=== PATIENT | female | born 1985 | race Caucasian/White ===

== ENCOUNTER 2017-10-09 00:26 | Emergency (ER) | payer SELFPAY ==
[2017-10-09] MEDS ORDERED: LORazepam 2 MG/ML VIAL ONE ×3 (00:43→10:01)
[2017-10-09] MEDS ORDERED: NA CHLORIDE 0.9% 1,000 ML ONE ×2 (00:43→17:25)
[2017-10-09 01:34] LABS: Absolute Lymphocytes (CBC) 1.8 K/uL (0.7-4.9); Absolute Monocytes 0.3 K/uL (0.1-1.3); Absolute Neutrophil 5.2 K/uL (1.8-8.0); Basophils % 0.7 % (0-1.3); Eosinophils % 0.3 % (0-4.4); Hematocrit 38.9 % (36.0-45.0); Lymphocytes % 24.5 % (15.3-44.8); MCH 30.2 pg (27.0-35.0); MCV 89.6 fL (80-100); MPV 8.2 fL (7.6-11.3); Monocytes % 3.6 % (3.3-12.3); RBC Red Blood Cell Count 4.35 M/uL (3.86-4.86)
[2017-10-09 01:35] LABS: Protime INR 0.93
[2017-10-09 01:37] LABS: Glucose Level 128 mg/dL (65-120)
[2017-10-09 01:40] LABS: Bicarbonate 25 mEq/L (21-31); Sodium Level 141 mEq/L (135-145)
[2017-10-09 01:41] LABS: Potassium 2.9 mEq/L (3.6-5.0)
[2017-10-09 01:42] LABS: Urine Blood 2+ (NEG); Urine Glucose NEGATIVE (NEG); Urine Protein NEGATIVE (NEG); Urine Specific Gravity 1.025 (1.005-1.030)
[2017-10-09 01:43] LABS: ALT/SGPT 15 IU/L (10-60); AST/SGOT 19 IU/L (10-42); Albumin 4.6 g/dL (3.2-5.5); Alkaline Phosphatase 48 IU/L (42-121); BUN Blood Urea Nitrogen 9 mg/dL (6-20); Bilirubin Direct < 0.1 mg/dL (0-0.2); Bilirubin Total 0.4 mg/dL (0.3-1.2); Protein, Total 8.4 g/dL (6.0-8.3)
[2017-10-09 01:44] LABS: Barbiturates NEGATIVE; Benzodiazepines POSITIVE; Cocaine NEGATIVE; Opiates NEGATIVE; Phencyclidine NEGATIVE; THC Cannibis POSITIVE
[2017-10-09 01:46] LABS: METHAMPHETAM POSITIVE
[2017-10-09 01:47] LABS: Alcohol Serum/Plasma 150 mg/dl; Salicylates Level < 4.0 mg/dl (<30)
[2017-10-09] MEDS ORDERED: IBUPROFEN 200 MG TAB PO ONE (01:59)
[2017-10-09] MEDS ORDERED: IBUPROFEN 400 MG TAB ONE (01:59)
[2017-10-09] MEDS ORDERED: POTASSIUM CL SA 10 MEQ TAB PO ONE (02:23)
[2017-10-09] MEDS ORDERED: D5.45NS W/KCL 20MEQ 0 ML IV ONE (03:03)
[2017-10-09] MEDS ORDERED: NS KCL 20MEQ 1,000 ML IV ONE (03:09)
[2017-10-09] MEDS ORDERED: POTASSIUM 25 MEQ EFFERV TAB ONE (03:36)
--- NOTE | 2017-10-09 06:38 | EKG ---
Test Date: 2017-10-09 Test Time: 00:52:45 Dog Races Manager: SUPRIYA MEASUREMENT RESULTS: Intervals: Rate: 71 AR: 118 QRSD: 92 QT: 376 QTc: 408 [place]: P: AR: 118 QRS: 17 T: 17 INTERPRETIVE STATEMENTS: Normal sinus rhythm Normal ECG Compared to ECG 09/26/2011 07:27:07 No significant changes Electronically Signed On 10-09-17 06:38:25 CDT by Felipe Weber
[2017-10-09] MEDS ORDERED: KETOROLAC 30 MG/ML INJ ONE (08:03)
--- NOTE | 2017-10-09 08:23 | ER ---
Nurse's Notes [facility] Name: Christine Dong Age: 32 yrs Sex: Female : 1985 Arrival Date: 10/09/2017 Time: 00:27 Bed 16 Private MD: Diagnosis: Suicidal ideations;Major depressive disorder, recurrent;Bipolar disorder Presentation: 10/09 00:52 Presenting complaint: EMS states: Patient took "something with a parachute on it that lp1 may have been meth", + ETOH, states feeling suicidal; "I'm a bad person, I shouldn't live"; Hx of bipolar disorder, SI. Transition of care: patient was not received from another setting of care. Onset of symptoms was October 09, 2017. Initial Sepsis Screen: Does the patient meet any 2 criteria? No. Patient's initial sepsis screen is negative. Does the patient have a suspected source of infection? No. Patient's initial sepsis screen is negative. Care prior to arrival: None. 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 - Social history:: Smoking status: Patient uses tobacco products, denies chronic smoking, but will smoke occasionally, Patient uses alcohol, Marijuana. Screenin:57 Abuse screen: Denies threats or abuse. Denies injuries from another. Nutritional lp1 screening: No deficits noted. Tuberculosis screening: No symptoms or risk factors identified. Fall Risk None identified. Assessment: 01:00 General: Appears uncomfortable, Behavior is cooperative, anxious, crying. Pain: bs1 Complains of pain in generalized pain, legs, jaw. Neuro: Level of Consciousness is awake, alert, Oriented to person, place, situation, Reports dizziness. Neuro: Reports. Cardiovascular: Denies chest pain, palpitations, Heart tones S1 S2 present. Cardiovascular: Capillary refill < 3 seconds Patient's skin is warm and dry. Respiratory: Airway is patent Trachea midline Respiratory effort is even, unlabored, Respiratory pattern is regular, symmetrical, Breath sounds are clear bilaterally. GI: Abdomen is flat, Bowel sounds present X 4 quads. Abd is non tender X 4 quads Reports nausea. : No deficits noted. No signs and/or symptoms were reported regarding the genitourinary system. EENT: No deficits noted. No signs and/or symptoms were reported regarding the EENT system. Derm: Skin is intact, Skin is pink, warm \\T\\ dry. Musculoskeletal: Circulation, motion, and sensation intact. Capillary refill < 3 seconds, Range of motion: intact in all extremities, Reports pain in bilateral legs/ jaw. 01:35 Reassessment: Patient on the phone with her noted to be crying and very bs1 anxious, patient states "I never did meth in my life, I ingested the meth because I just didn't care anymore, I wanted to end it all because I am a piece of shit, I called because I wanted the help, this claudy gave it to me and told me to take it that I would like it so I took it.". 02:00 Reassessment: Informed MARIO Arguello that patient is requesting to be transferred to [address] Patients states "I have been having these suicidal thoughts for a while, I need the help.". 03:30 Reassessment: Patient walking back and forth in the room, anxious, crying, pacing, bs1 continuously requesting, toradol, benadryl. Informed Dr Johnson of patients request. No more orders at this time. 04:00 Reassessment: Patient given prune juice. Patient seen to be on the commode in the room bs1 straining and groaning. 05:45 Reassessment: No changes from previously documented assessment. Patient and/or family bs1 updated on plan of care and expected duration. Pain level reassessed. Patient is alert, oriented x 3, equal unlabored respirations, skin warm/dry/pink. Patient still anxious, states "Is there ghosts in here, I swear I just saw something.". 06:29 Reassessment: Patient states "I feel like the drugs are wearing off some." Patient is bs1 still noted to be pacing around room, anxious, crying, moaning, requesting pain meds. 07:10 General: Appears in no apparent distress. uncomfortable, Behavior is cooperative, hj anxious, crying. Pain: Denies pain. Neuro: Level of Consciousness is awake, alert, obeys commands, Oriented to person, place, time, situation. Cardiovascular: Denies chest pain, palpitations, Heart tones S1 S2 present Capillary refill < 3 seconds Patient's skin is warm and dry. Respiratory: Airway is patent Respiratory effort is even, unlabored, Respiratory pattern is regular, symmetrical, Breath sounds are clear. GI: No signs and/or symptoms were reported involving the gastrointestinal system. GI: Abdomen is non-distended, Bowel sounds present X 4 quads. Abd is non tender Reports nausea. : No signs and/or symptoms were reported regarding the genitourinary system. EENT: No signs and/or symptoms were reported regarding the EENT system. Derm: No signs and/or symptoms reported regarding the dermatologic system. Musculoskeletal: No signs and/or symptoms reported regarding the musculoskeletal system. 08:01 Reassessment: Patient c/o back pain, requesting 'toradol" provider notified, new orders ae1 received. 09:00 Reassessment: [facility] with pt;. hj 10:00 Reassessment: pt uses our phone to speak with her . pt the becomes very tearful ch and agitated. pt states she needs to leave. pt is hyperventilating and crying in room, rocking back and forth, pacing in the room. I speak with pt to attempt to calm her down. pt states she wants to go home and be with her kids. I inform pt that she is still considered a danger to herself and that we would like her to stay and get help. pt states she needs to go smoke. pt is speaking very fast, hyperventilating, wringing her hands. pt asks for something to help her calm down. erp notified, pt medicated per orders for anxiety. pt states she has been feeling suicidal for the past month or even year. pt agrees to stay and get treatment for her depression. pt states she is not a bad person, but that she hit rock bottom yesterday. 11:37 Reassessment: Patient appears in no apparent distress at this time. Patient and/or ch family updated on plan of care and expected duration. Pain level reassessed. pt is sleeping in room now. we call the phone number she gave us, and her answers. pt will be notified, that her has her phone when she awakens again. 14:56 Reassessment: Patient appears in no apparent distress at this time. Patient and/or ch family updated on plan of care and expected duration. Pain level reassessed. pt is sleeping in room, no s/s of distress. pt moves around and responds appropriately to verbal stimuli, then returns to sleep. 17:00 Reassessment: Patient appears in no apparent distress at this time. Patient and/or ch family updated on plan of care and expected duration. Pain level reassessed. Patient is alert, oriented x 3, equal unlabored respirations, skin warm/dry/pink. Patient states feeling better. Patient states symptoms have improved. 18:00 Reassessment: Patient appears in no apparent distress at this time. Patient and/or ch family updated on plan of care and expected duration. Pain level reassessed. Patient is alert, oriented x 3, equal unlabored respirations, skin warm/dry/pink. Patient states feeling better. Patient states symptoms have improved. 19:26 Reassessment: Patient appears in no apparent distress at this time. report given to bob ordonez and Geraldine ROGERS. 19:54 Reassessment: Pt. states that she is feeling anxious \\T\\ this time... provider notified. rk2 Verbal order from Malik MARTIN for xanax 1 mg PO. 20:51 Reassessment: Called report to receiving AUBREE Hollingsworth... EMS to be called and pt. rk2 transferred. 21:20 Reassessment: [facility] arrived, report and pt. care turned over... pt. rk2 transported out on stretcher. Psych: 00:55 Subjective: Patient's mood is sad, Delusions are denied, Hallucinations are denied lp1 Having thoughts of suicide. Plan for suicide is States "there is a gun in the top drawer that I could use". Objective: Patient is cooperative, Speech is normal, Affect is appropriate. Interventions: Removed personal items and placed in bag. Patient placed in hospital gown. Searched person for dangerous items. Urine collected and sent for urine drug test. Suicide Risk Assessment: Sad Person Scale: Sex of patient: Female: Score 0 points. Age of patient: Score 1 point if patient 15-34. Depression: Score 1 point if signs of depression are present. Previous Attempt: Score 1 point if patient has previously attempted suicide. Substance Abuse: Score 1 point if patient abuses alcohol or drugs. Rational Thinking: Score 1 point if patient is lacking rational thinking. Social Support: Score 1 point if social support is lacking and/or unavailable. Organized Plan: Score 1 point if patient had a plan in place. Relationship: Score 0 point if patient has a spouse or domestic partner. Chronic Sickness: Score 0 point if patient does not have a chronic illness, debilitating, or severe disorder. TOTAL POINTS: If total points are 7-10, the proposed clinical action is to hospitalize or commit. Implement suicide precautions. 01:00 Safety Checks: Door is open. No visitors are present at this time. bs1 01:00 Patient uses 1-3 glasses Patient uses methamphetamines Unknown, patient reports taking bs1 meth from unknown person. Patient uses tobacco Last use was 1 days ago. 21:21 Commitment: Patient will be a voluntary commitment. rk2 Vital Signs: 01:00 Pulse 83; Resp 18; Temp 98.7(O); Pulse Ox 100% on R/A; Weight 54.43 kg; Height 5 ft. 5 lp1 in. (165.10 cm); 01:05 BP 136 / 97; Pulse 77; bs1 05:08 BP 122 / 70 LA Sitting (auto/reg); Pulse 63 RA; Resp 30 S; Temp 98.5(O); Pulse Ox 99% cb2 on R/A; 09:11 BP 118 / 68; Pulse 74; Resp 16; Temp 98.3; Pulse Ox 100% on R/A; Pain 5/10; iw 10:00 BP 146 / 68; Pulse 96; Resp 24; Pulse Ox 99% on R/A; ch 10:32 BP 114 / 72; Pulse 71; Resp 14; Temp 98.2; Pulse Ox 99% on R/A; Pain 0/10; ch 14:00 BP 123 / 76; Pulse 72; Resp 22; Pulse Ox 100% on R/A; mh5 17:12 BP 111 / 74; Pulse 96; Resp 16; Temp 98.2(O); Pulse Ox 98% on R/A; mh5 18:30 BP 116 / 68; Pulse 96; Resp 17; Temp 97.8(O); Pulse Ox 99% on R/A; mh5 01:00 Body Mass Index 19.97 (54.43 kg, 165.10 cm) lp1 ED Course: 00:27 Patient arrived in ED. am2 00:28 Malik Arguello PA is PHCP. jr8 00:28 Trevon Johnson MD is Attending Physician. jr8 00:40 Kathie Burdick, RN is Primary Nurse. bs1 00:54 Triage completed. lp1 00:54 Arm band placed on left wrist. lp1 00:55 Urine collected: clean catch specimen, clear. lp1 00:57 Patient has correct armband on for positive identification. Placed in gown. lp1 01:05 No provider procedures requiring assistance completed. Inserted saline lock: 20 gauge bs1 in right antecubital area, using aseptic technique. By Ernesto Roca Missed attempt(s): 22 gauge in left antecubital area. By Nurse Vázquez.. 01:38 Safety checks: Items removed: yes. Door open/sign placed on door: yes. Family/friend cb2 present: Other: pt on the phone with the , Kathie RN at pt bedside. 02:03 Safety checks: Items removed: yes. Door open/sign placed on door: yes. Family/friend cb2 present: no. 02:16 Safety checks: Items removed: yes. Door open/sign placed on door: yes. Family/friend cb2 present: no. 02:32 Safety checks: Items removed: yes. Door open/sign placed on door: yes. Family/friend cb2 present: no. 02:44 Safety checks: Items removed: yes. Door open/sign placed on door: yes. Family/friend cb2 present: no. 03:00 Safety checks: Items removed: yes. Door open/sign placed on door: yes. Family/friend cb2 present: no. 03:33 Safety checks: Items removed: yes. Door open/sign placed on door: yes. Family/friend cb2 present: no. 03:45 Safety checks: Items removed:. Safety checks: Items removed: yes. Door open/sign placed cb2 on door: yes. Family/friend present: no. 04:00 Safety checks: Items removed: yes. Door open/sign placed on door: yes. Family/friend cb2 present: no. 04:15 Safety checks: Items removed: yes. Door open/sign placed on door: yes. Family/friend cb2 present: no. 04:30 Safety checks: Items removed: yes. Door open/sign placed on door: yes. Family/friend cb2 present: no. 04:48 Safety checks: Items removed: yes. Door open/sign placed on door: yes. Family/friend cb2 present: no. 05:01 Safety checks: Items removed: yes. Door open/sign placed on door: yes. Family/friend cb2 present: no. 05:15 Safety checks: Items removed: yes. Door open/sign placed on door: yes. Family/friend cb2 present: no. 05:34 Safety checks: Items removed: yes. Door open/sign placed on door: yes. Family/friend cb2 present: no. Noise minimized. Lights dimmed. Assisted to bedside commode. Linen changed. 05:49 Safety checks: Items removed: yes. Door open/sign placed on door: yes. Family/friend cb2 present: no. 06:00 Safety checks: Items removed: yes. Door open/sign placed on door: yes. Family/friend cb2 present: no. 06:13 Safety checks: Items removed: yes. Door open/sign placed on door: yes. Family/friend cb2 present: no. 06:13 Repeat lab(s) drawn. by me, sent to lab. cb2 06:30 Safety checks: Items removed: yes. Door open/sign placed on door: yes. Family/friend cb2 present: no. 06:47 Safety checks: Items removed: yes. Door open/sign placed on door: yes. Family/friend cb2 present: no. 07:00 Safety checks: Items removed: yes. Door open/sign placed on door: yes. Family/friend mh5 present: no. 07:15 Safety checks: Items removed: yes. Door open/sign placed on door: yes. Family/friend mh5 present: no. 07:22 [facility] notified about the patient spoke with ag 07:30 Safety checks: Items removed: yes. Door open/sign placed on door: yes. Family/friend mh5 present: no. 07:45 Safety checks: Items removed: yes. Door open/sign placed on door: yes. Family/friend mh5 present: no. 08:00 Safety checks: Items removed: yes. Door open/sign placed on door: yes. Family/friend mh5 present: no. 08:15 Safety checks: Items removed: yes. Door open/sign placed on door: yes. Family/friend mh5 present: no. 08:45 Safety checks: Items removed: yes. Door open/sign placed on door: yes. Family/friend mh5 present: no. 09:00 Safety checks: Items removed: yes. Door open/sign placed on door: yes. Family/friend mh5 present: no. 09:15 Safety checks: Items removed: yes. Door open/sign placed on door: yes. Family/friend mh5 present: no. 09:17 Primary Nurse role handed off by Kathie Burdick RN 09:17 Stacey Patterson RN is Primary Nurse. 09:30 Safety checks: Items removed: yes. Door open/sign placed on door: yes. Family/friend mh5 present: no. 09:45 Safety checks: Items removed: yes. Door open/sign placed on door: yes. Family/friend mh5 present: no. 10:00 Safety checks: Items removed: yes. Door open/sign placed on door: yes. Family/friend mh5 present: no. 10:09 Demographics and the patients information was sent to all [facility] facilities. ag 10:13 An from [facility] called to inform us they have no beds available at this time. ag 10:15 Safety checks: Items removed: yes. Door open/sign placed on door: yes. Family/friend mh5 present: no. 10:30 Safety checks: Items removed: yes. Door open/sign placed on door: yes. Family/friend mh5 present: no. 10:45 Safety checks: Items removed: yes. Door open/sign placed on door: yes. Family/friend mh5 present: no. 11:00 Safety checks: Items removed: yes. Door open/sign placed on door: yes. Family/friend mh5 present: no. 11:30 Safety checks: Items removed: yes. Door open/sign placed on door: yes. Family/friend mh5 present: no. 11:34 Jerrica from [facility] call to inform us they have no beds but will keep her ag on the list. 11:45 Safety checks: Items removed: yes. Door open/sign placed on door: yes. Family/friend mh5 present: no. 12:00 Safety checks: Items removed: yes. Door open/sign placed on door: yes. Family/friend mh5 present: no. 12:15 Safety checks: Items removed: yes. Door open/sign placed on door: yes. Family/friend mh5 present: no. 12:45 Safety checks: Items removed: yes. Door open/sign placed on door: yes. Family/friend mh5 present: no. 13:00 Safety checks: Items removed: yes. Door open/sign placed on door: yes. Family/friend mh5 present: no. 13:15 Safety checks: Items removed: yes. Door open/sign placed on door: yes. Family/friend mh5 present: no. 13:30 Safety checks: Items removed: yes. Door open/sign placed on door: yes. Family/friend mh5 present: no. 13:45 Safety checks: Items removed: yes. Door open/sign placed on door: yes. Family/friend mh5 present: no. 14:00 Safety checks: Items removed: yes. Door open/sign placed on door: yes. Family/friend mh5 present: no. 14:15 Safety checks: Items removed: yes. Door open/sign placed on door: yes. Family/friend mh5 present: no. 14:30 Safety checks: Items removed: yes. Door open/sign placed on door: yes. Family/friend mh5 present: no. 14:45 Safety checks: Items removed: yes. Door open/sign placed on door: no. Family/friend mh5 present: no. 15:00 Safety checks: Items removed: yes. Door open/sign placed on door: yes. Family/friend mh5 present: no. 15:15 Safety checks: Items removed: yes. Door open/sign placed on door: yes. Family/friend mh5 present: no. 15:30 Safety checks: Items removed: yes. Door open/sign placed on door: yes. Family/friend mh5 present: no. 15:45 Safety checks: Items removed: yes. Door open/sign placed on door: yes. Family/friend mh5 present: no. 16:00 Safety checks: Items removed: yes. Door open/sign placed on door: yes. Family/friend mh5 present: no. 16:15 Safety checks: Items removed: yes. Door open/sign placed on door: yes. Family/friend mh5 present: no. 16:30 Safety checks: Items removed: yes. Door open/sign placed on door: yes. Family/friend mh5 present: no. 16:45 Safety checks: Items removed: yes. Door open/sign placed on door: yes. Family/friend mh5 present: no. 17:00 Safety checks: Items removed: yes. Door open/sign placed on door: yes. Family/friend mh5 present: no. 17:15 Safety checks: Items removed: yes. Door open/sign placed on door: yes. Family/friend mh5 present: no. 17:30 Safety checks: Items removed: yes. Door open/sign placed on door: yes. Family/friend mh5 present: no. 17:45 Safety checks: Items removed: yes. Door open/sign placed on door: yes. Family/friend mh5 present: no. 17:57 Exclusionary forms sent to [facility]. ag 18:00 Safety checks: Items removed: yes. Door open/sign placed on door: yes. Family/friend mh5 present: no. 18:15 Safety checks: Items removed: yes. Door open/sign placed on door: yes. Family/friend mh5 present: no. 18:30 Safety checks: Items removed: yes. Door open/sign placed on door: yes. Family/friend mh5 present: no. 18:45 Safety checks: Items removed: yes. Door open/sign placed on door: yes. Family/friend mh5 present: no. 19:00 Safety checks: Items removed: yes. Door open/sign placed on door: yes. Family/friend aa8 present: no. 19:15 Safety checks: Items removed: yes. Door open/sign placed on door: yes. Family/friend aa8 present: no. 19:30 Safety checks: Items removed: yes. Door open/sign placed on door: yes. Family/friend aa8 present: yes. Family/friends encouraged to stay with patient. 20:00 Safety checks: Items removed: yes. Door open/sign placed on door: yes. Family/friend aa8 present: no. 20:15 Safety checks: Items removed: yes. Door open/sign placed on door: yes. Family/friend aa8 present: no. 20:30 Safety checks: Items removed: yes. Door open/sign placed on door: yes. Family/friend aa8 present: yes. 20:35 Safety checks: Items removed: yes. Door open/sign placed on door: yes. Family/friend aa8 present: no. 20:36 Safety checks: Items removed: yes. Door open/sign placed on door: yes. Family/friend aa8 present: no. 20:45 Safety checks: Items removed: yes. Door open/sign placed on door: yes. Family/friend aa8 present: no. 21:00 Safety checks: Items removed: yes. Door open/sign placed on door: yes. Family/friend aa8 present: no. 21:15 Safety checks: Items removed: yes. Door open/sign placed on door: yes. Family/friend aa8 present: Other: PT JUST TRANSFER. 21:22 IV discontinued. rk2 Administered Medications: 01:05 Drug: Ativan 1 mg Route: IVP; Site: right antecubital; bs1 04:06 Follow up: Response: No adverse reaction bs1 01:14 Drug: NS 0.9% 1000 ml Route: IV; Rate: 1000 ml; Site: right antecubital; bs1 04:06 Follow up: IV Status: Completed infusion bs1 02:21 Drug: Ibuprofen 600 mg Route: PO; bs1 04:06 Follow up: Response: No adverse reaction bs1 02:23 Drug: Potassium Chloride 40 mEq Route: PO; bs1 04:06 Follow up: Response: No adverse reaction bs1 03:13 Drug: Ativan 2 mg Route: IVP; Site: right antecubital; bs1 04:05 Follow up: Response: No adverse reaction bs1 03:13 Drug: NS 0.9% with KCl 20 mEq/L 1000 ml Route: IV; Rate: 500 ml/hr; Site: right bs1 antecubital; 05:26 Follow up: IV Status: Completed infusion bs1 03:38 CANCELLED (incorrect med): Potassium Chloride 40 mEq PO once bs1 03:40 Drug: Potassium Effervescent Tablet 50 mEq Route: PO; bs1 04:07 Follow up: Response: No adverse reaction bs1 10:24 Follow up: Response: No adverse reaction; Marked relief of symptoms ch 08:02 Drug: TORadol 30 mg Route: IVP; Site: right antecubital; hj 08:04 Follow up: Response: No adverse reaction hj 10:00 Drug: Nicoderm CQ 21 mg/24 hr 1 patches Route: Transdermal; Site: anterior chest wall; ch 15:02 Follow up: Response: No adverse reaction; Marked relief of symptoms ch 10:10 Drug: Geodon 20 mg Route: IM; Site: right gluteus; ch 15:02 Follow up: Response: No adverse reaction; Marked relief of symptoms ch 10:23 Drug: Ativan 2 mg Route: IVP; Site: right antecubital; ch 15:02 Follow up: Response: No adverse reaction; Marked relief of symptoms ch 17:30 Drug: NS 0.9% 1000 ml Route: IV; Rate: 1 bolus; Site: right antecubital; ae1 19:27 Follow up: IV Status: Completed infusion; IV Intake: 1000ml ch 19:53 Drug: XANax Tablet 1 mg Route: PO; rk2 Intake: 19:27 IV: 1000ml; Total: 1000ml. ch Outcome: 08:23 ER care complete, transfer ordered by MD. hanson 21:21 Transferred by ground EMS rk2 21:21 Condition: good 21:21 Instructed on the need for transfer. 21:22 Patient left the ED. rk2 Signatures: Stacey Patterson RN Trevon Cha ch, MD MD cha Williams, Irene RN Trinity Sanchez RN RN lp1 Malik Arguello PA PA jr8 Debora Morse Henry, RN RN hj Elliott, Andrea, RN RN ae1 Mehnaz Bhandari 5 Dolly Beard Ernesto Nguyen Adeola aa8 Salazar, Brittany RN RN bs1 Yamila Hernandez RN RN rk2 Corrections: (The following items were deleted from the chart) 08:43 08:20 Safety checks: Items removed: yes. Door open/sign placed on door: yes. mh5 Family/friend present: [facility] 08:47 08:30 Safety checks: Items removed: yes. Door open/sign placed on door: yes. mh5 Family/friend present: [facility] 20:32 20:29 Safety checks: Items removed: yes. Door open/sign placed on door: yes. aa8 Family/friend present: no. aa8 21:12 20:32 Safety checks: Items removed: yes. Door open/sign placed on door: yes. aa8 Family/friend present: no. aa8 20:35 Safety checks: Items removed: yes. Door open/sign placed on door: yes. aa8 Family/friend present: no. aa8
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
[2017-10-09] MEDS ORDERED: ZIPRASIDONE MESYLA 20 MG/VIAL IM ONE (10:01)
[2017-10-09] MEDS ORDERED: NICOTINE 21 MG/PAT TD ONE (10:02)
[2017-10-09] MEDS ORDERED: WATER FOR INJ,STERILE 10 ML ONE (10:02)
[2017-10-09] MEDS ORDERED: ALPRAZOLAM 1 MG TABLET ONE (19:48)
[2017-10-09 21:45] VITALS: BP 116/68; TEMP 97.8; O2SAT 99
== END 2017-10-09 21:22 ==
LOC: ER 00:26
DX: F33.9 Major depressive disorder, recurrent, unspecified (principal); F31.9 Bipolar disorder, unspecified; I10 Essential (primary) hypertension; Z72.0 Tobacco use; Z88.8 Allergy status to other drugs, medicaments and biological substances
CPT/HCPCS: 36415; 80048; 80076; 80307; 80320; 80329; 81003; 81025; 84132; 85025; 85610; 93005; 96361; 96372; 96374; 96375; 99285; J3486; J7030

== ENCOUNTER 2018-05-28 18:29 | Emergency (ER) | payer SELFPAY ==
--- OUTSIDE RECORDS SUMMARY | 2018-05-28 18:31 | XMS REPORT | Clinical Summary ---
:1985 Author Organization [facility] Address [address] [place] [address] Care Team Providers Name Role Phone Asked, No Pcp Primary Care Provider Unavailable Allergies Active Allergy Reactions Severity Noted Date Comments Promethazine 10/10/2017 Medications Medication Sig Dispensed Refills Start Date End Date Status gabapentin Take 1 capsule 90 capsule 0 10/12/2017 11/11/2017 (NEURONTIN) 400 mg (400 mg total) capsuleIndications: by mouth 3 Alcoholism (three) times a day for 30 days. hydrOXYzine (ATARAX) Take 1 tablet 30 tablet 0 10/12/2017 11/11/2017 50 MG (50 mg total) by tabletIndications: mouth every 6 Anxiety (six) hours as needed for anxiety (mild anxiety) for up to 30 days. traZODone (DESYREL) Take 1 tablet 30 tablet 0 10/12/2017 11/11/2017 100 MG (100 mg total) tabletIndications: by mouth nightly insomnia associated as needed for with depression sleep (Insomnia) for up to 30 days. nicotine (NICODERM Place 1 patch on 30 patch 0 10/13/2017 11/12/2017 CQ) 14 mg/24 the skin daily hrIndications: for 30 days. Smoking Cessation Active Problems Problem Noted Date Sedative hypnotic withdrawal, with unspecified complication 10/10/2017 Encounters Date Type Specialty Care Team Description 10/30/2017 Telephone Psychiatry Boyd Buchanan, PhD 10/09/2017 - Hospital Encounter Psychiatry Maru Baptiste MD 10/14/2017 Seth Uriostegui MD after 05/27/2017 Social History Tobacco Use Types Packs/Day Years Used Date Current Every Day Smoker Cigarettes 0.25 Smokeless Tobacco: Never Used Tobacco Cessation: Ready to Quit: Yes; Counseling Given: Yes Alcohol Use Drinks/Week oz/Week Comments Yes 3 Cans of beer 1.8 Sex Assigned at Date Recorded Not on file Job Start Date Occupation Industry Not on file Not on file Not on file Travel History Travel Start Travel End No recent travel history available. Last Filed Vital Signs Vital Sign Reading Time Taken Blood Pressure 112/61 10/14/2017 6:29 AM CDT Pulse 64 10/14/2017 6:29 AM CDT Temperature 36.6 C (97.9 F) 10/14/2017 6:29 AM CDT Respiratory Rate 18 10/14/2017 6:29 AM CDT Oxygen Saturation 97% 10/14/2017 6:29 AM CDT Inhaled Oxygen Concentration - - Weight 52.3 kg (115 lb 6.4 oz) 10/10/2017 6:06 AM CDT Height 152.4 cm (5') 10/09/2017 11:28 PM CDT Body Mass Index 22.54 10/10/2017 6:06 AM CDT Plan of Treatment Not on file Procedures Procedure Name Priority Date/Time Associated Diagnosis Comments ECG 12-LEAD STAT 10/10/2017 9:54 AM Results for this CDT procedure are in the results section. HEMOGLOBIN A1C Routine 10/10/2017 5:52 AM Results for this CDT procedure are in the results section. LIPID PANEL Routine 10/10/2017 1:22 AM Results for this CDT procedure are in the results section. after 05/27/2017 Results ECG 12 lead (10/10/2017 9:54 AM CDT) Ventricular rate 63 [facility] Atrial rate 63 [facility] AZ interval 130 [facility] QRSD interval 92 [facility] QT interval 412 [facility] QTC interval 421 [facility] P axis 1 0 [facility] QRS axis 1 30 [facility] T wave axis 30 [facility] EKG impression Normal sinus rhythm-Normal ECG-No previous [facility] ECGs available- Performing Organization Address City/State/Zipcode Phone Number [facility] [address] [place] [address] Hemoglobin A1c (10/10/2017 5:52 AM CDT) Hemoglobin A1C 5.1 4.0 - 5.6 % [facility] DEPARTMENT OF PATHOLOGY Comment: AND GENOMIC MEDICINE HbA1c cutoffs for diagnosing diabetes: 4.0% - 5.6%=normal 5.7% - 6.4%=increased risk for diabetes (prediabetes) >=6.5%=diabetes Goals for glycemic control (ADA 2016) < 7.0%Target for non adults with diabetes. More or less stringent targets may be appropriate for individual patients. <7.5% Target for Children and adolescents with type 1 diabetes. Specimen Blood Performing Organization Address [facility] Phone Number [facility] AND [address] [place] [address] [employer]uso [facility] Lipid panel (10/10/2017 1:22 AM CDT) Cholesterol 121 <200 mg/dL [facility] DEPARTMENT OF PATHOLOGY AND GENOMIC MEDICINE Triglycerides 59 <150 mg/dL [facility] OF PATHOLOGY AND GENOMIC MEDICINE HDL cholesterol 66 >40 mg/dL [facility] DE[facility] OF PATHOLOGY AND GENOMIC MEDICINE LDL cholesterol 49Comment: Result <100 mg/dL [facility] OF obtained by direct LDL PATHOLOGY AND GENOMIC measurement MEDICINE Lipid panel interpretation SeeBelow [facility] OF Comment: PATHOLOGY AND GENOMIC Total Cholesterol (mg/dL) MEDICINE <200 Desirable [id number]-mqto >=240High Triglycerides (mg/dL) <150 Normal 426-117Wtlfzvpyxm-[id number] 200-499High >=500Very high HDL Cholesterol (mg/dL) <40Low (male) <40Low (female) LDL Cholesterol (mg/dL) <100 Optimal 100-129Near or above optimal [id number]-zmus 160-189High >=190Very high Risk Catergories that modify LDL goals. Risk CatergoriesLDL goal (mg/dL) CHD and CHD risk equivalent<100 (10-year risk >20%) Multiple (2+) risk factors <130 (10-year risk=<20%) 0-1 risk factors <160 (<10-year risk) Defining levels of lipids in metabolic syndrome Triglycerides>=150 mg/dL HDL Cholesterol Men<40 mg/dL Women<40 mg/dL Non-HDL cholesterol is a second target for therapy in persons with high triglycerides (>=200 mg/dL) Specimen Plasma specimen Performing Organization Address City/[facility]/Zipcode Phone Number [facility] DEPARTMENT OF PATHOLOGY AND [address] [place] [address] Social[employer]305 after 05/27/2017 Advance Directives Patient has advance care planning documents on file. For more information, please contact:Ta Urias[address] [facility] [place] [address]
[2018-05-28] MEDS ORDERED: KETOROLAC 30 MG/ML INJ ONE (19:10)
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
[2018-05-28 20:50] VITALS: BP 130/88; O2SAT 100
== END 2018-05-28 20:44 | disposition home or self-care (01) ==
LOC: ER 18:29
DX: S29.012A Strain of muscle and tendon of back wall of thorax, initial encounter (principal); S90.31XA Contusion of right foot, initial encounter; N39.0 Urinary tract infection, site not specified; V49.9XXA Car occupant (driver) (passenger) injured in unspecified traffic accident, initial encounter; Z88.8 Allergy status to other drugs, medicaments and biological substances; I10 Essential (primary) hypertension
CPT/HCPCS: 72125; 72128; 96374; 99284

== ENCOUNTER 2018-06-06 22:25 | Emergency (ER) | payer SELFPAY ==
--- OUTSIDE RECORDS SUMMARY | 2018-06-06 22:28 | XMS REPORT | Clinical Summary ---
:1985 Author Organization [facility] Address [address] [place] [address] Care Team Providers Name Role Phone Asked, [...] Baptiste MD 10/14/2017 Seth Uriostegui MD after 06/05/2017 Social History Tobacco Use Types Packs/Day Years [...] procedure are in the results section. after 06/05/2017 Results ECG 12 lead (10/10/2017 9:54 AM CDT) Ventricular rate 63 [facility] Atrial rate 63 [facility] RI interval 130 [facility] QRSD interval 92 [facility] QT interval 412 [facility] QTC interval 421 [facility] M[facility] P axis 1 0 [facility] MUSE QRS axis 1 30 [facility] MUSE T wave axis 30 [facility]USE EKG impression Normal sinus rhythm-Normal ECG-No previous [facility]USE ECGs available- Performing Organization Address City/State/Zipcode Phone Number [facility] MUSE [address] [place] [address] Hemoglobin A1c (10/10/2017 5:52 AM CDT) Hemoglobin A1C 5.1 4.0 - 5.6 % [facility] DEPARTMENT OF PATHOLOGY Comment: AND GENOMIC MEDICINE HbA1c cutoffs for diagnosing diabetes: 4.0% - 5.6%=normal 5.7% - 6.4%=increased risk for diabetes (prediabetes) >=6.5%=diabetes Goals for glycemic control (ADA 2016) < 7.0%Target for non adults with diabetes. More or less stringent targets may be appropriate for individual patients. <7.5% Target for Children and adolescents with type 1 diabetes. Specimen Blood Performing Organization Address [facility] Phone Number [facility] DEPARTMENT OF PATHOLOGY AND [address] [place] [address] [employer] [facility] Lipid panel (10/10/2017 1:22 AM CDT) Cholesterol 121 <200 mg/dL [facility] DEPARTMENT OF PATHOLOGY AND GENOMIC MEDICINE Triglycerides 59 <150 mg/dL [facility] DEPARTMENT OF PATHOLOGY AND GENOMIC MEDICINE HDL cholesterol 66 >40 mg/dL [facility] DEPARTMENT OF PATHOLOGY AND GENOMIC MEDICINE LDL cholesterol 49Comment: Result <100 mg/dL [facility] DEPARTMENT OF obtained by direct LDL PATHOLOGY AND GENOMIC measurement MEDICINE Lipid panel interpretation SeeBelow [facility] DEPARTMENT OF Comment: PATHOLOGY AND GENOMIC Total Cholesterol (mg/dL) MEDICINE <200 Desirable [phone]-bzpr >=240High Triglycerides (mg/dL) <150 Normal [id number]-jnws 200-499High >=500Very high HDL Cholesterol (mg/dL) <40Low (male) <40Low (female) LDL Cholesterol (mg/dL) <100 Optimal 100-129Near or above optimal 255-575Vpknftimgn-jlev 160-189High >=190Very high Risk Catergories that modify [...] mg/dL) Specimen Plasma specimen Performing Organization Address City/[facility]/Zipcode Phone Number [facility] DEPARTMENT OF PATHOLOGY AND [address] [place] [address] [employer] after 06/05/2017 Advance Directives Patient has advance care planning documents on file. For more information, please contact:Ta [id number] [place] [address]
--- NOTE | 2018-06-06 23:19 | ER ---
Nurse's Notes [facility] Name: Christine Dong Age: 32 yrs Sex: Female : 1985 Arrival Date: 06/06/2018 Time: 22:30 Bed 16 Private MD: Diagnosis: Person with feared health complaint in whom no diagnosis is made Presentation: 06/06 22:39 Presenting complaint: Patient states: "I've had a tampon stuck in my vagina for about 4 tl2 hours and I've been unable to pull it out" Denies pain or bleeding. Transition of care: patient was not received from another setting of care. Onset of symptoms was June 06, 2018 at 18:00. Risk Assessment: Do you want to hurt yourself or someone else? Patient reports no desire to harm self or others. Initial Sepsis Screen: Does the patient meet any 2 criteria? No. Patient's initial sepsis screen is negative. Does the patient have a suspected source of infection? No. Patient's initial sepsis screen is negative. Care prior to arrival: None. 22:39 Method Of Arrival: Ambulatory tl2 22:39 Acuity: ROSELIA 5 tl2 Triage Assessment: 22:41 General: Appears in no apparent distress. comfortable, Behavior is calm, cooperative, tl2 appropriate for age. Pain: Denies pain. Neuro: Level of Consciousness is awake, alert, obeys commands, Oriented to person, place, time, situation. Respiratory: Airway is patent Respiratory effort is even, unlabored, Respiratory pattern is regular, symmetrical. GI: No signs and/or symptoms were reported involving the gastrointestinal system. : Reports tampon stuck in vagina for 4 hours, unable to remove Denies cramping pain vaginal bleeding. Derm: Skin is pink, warm \\T\\ dry. 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 - Social history:: Smoking status: Patient uses tobacco products, smokes one-half pack cigarettes per day. - Ebola Screening: : No symptoms or risks identified at this time. Screenin:43 Abuse screen: Denies threats or abuse. Nutritional screening: No deficits noted. tl2 Tuberculosis screening: No symptoms or risk factors identified. Fall Risk None identified. Assessment: 22:41 General: see triage assessment. tl2 23:28 Reassessment: Patient appears in no apparent distress at this time. Patient and/or tl2 family updated on plan of care and expected duration. Pain level reassessed. Patient is alert, oriented x 3, equal unlabored respirations, skin warm/dry/pink. pt verbalized understanding of discharge instructions, need for follow up. Vital Signs: 22:41 BP 140 / 87; Pulse 86; Resp 18; Temp 98.1; Pulse Ox 98% on R/A; Weight 54.43 kg; Height tl2 5 ft. 0 in. (152.40 cm); Pain 0/10; 22:41 Body Mass Index 23.44 (54.43 kg, 152.40 cm) tl2 ED Course: 22:30 Patient arrived in ED. es 22:39 Kanu Soriano PA is PHCP. [facility] 22:39 Trevon Johnson MD is Attending Physician. [facility] 22:40 Triage completed. tl2 22:41 Arm band placed on right wrist. tl2 22:43 Patient has correct armband on for positive identification. Bed in low position. Call tl2 light in reach. Side rails up X 1. 23:17 Day Ballard, AUBREE is Primary Nurse. tl2 23:18 Assist provider with pelvic exam: Set up pelvic tray. Performed by Kanu MARTIN tl2 Patient tolerated well. no foreign body visualized in vagina, MARIO performed finger sweep and found no foreign body or abnormalities. Patient did not have IV access during this emergency room visit. Administered Medications: No medications were administered Outcome: 23:18 Discharge ordered by . [facility] 23:28 Discharged to home ambulatory. tl2 23:28 Condition: stable 23:28 Discharge instructions given to patient, Instructed on discharge instructions, follow up and referral plans. Demonstrated understanding of instructions, follow-up care. 23:30 Patient left the ED. tl2 Signatures: Kanu Soriano PA PA jmm Salyer, Edna Day Ballard RN RN tl2
--- NOTE | 2018-06-06 23:19 | EDPHYS ---
Physician Documentation [facility] Name: Christine Dong Age: 32 yrs Sex: Female : 1985 Arrival Date: 06/06/2018 Time: 22:30 Bed 16 Private MD: ED Physician Trevon Johnson HPI: 06/06 22:42 This 32 yrs old Female presents to ER via Ambulatory with complaints of jmm Foreign body In Vagina. 22:42 The patient presents with vaginal fb. Onset: The symptoms/episode began/occurred today. jmm Associated signs and symptoms: Pertinent negatives: fever. This is a 32 year old female with a history of htn that presents to the ED with complaints of a tampon stuck in her vagina. Patient states she inserted a small tampon earlier in the day and is unable to retrieve it. . 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 - Social history:: Smoking status: Patient uses tobacco products, smokes one-half pack cigarettes per day. - Ebola Screening: : No symptoms or risks identified at this time. ROS: 22:42 Constitutional: Negative for fever, chills, and weight loss, Cardiovascular: Negative jmm for chest pain, palpitations, and edema, Respiratory: Negative for shortness of breath, cough, wheezing, and pleuritic chest pain. 22:42 : Positive for FB. 22:42 All other systems are negative. Exam: 22:42 Constitutional: This is a well developed, well nourished patient who is awake, alert, jmm and in no acute distress. Head/Face: atraumatic. Eyes: EOMI, no conjunctival erythema appreciated ENT: Moist Mucus Membranes Neck: Trachea midline, Supple Chest/axilla: Normal chest wall appearance and motion. Cardiovascular: Regular rate and rhythm. No edema appreciated Respiratory: Normal respirations, no respiratory distress appreciated Abdomen/GI: Non distended, soft Back: Normal ROM 22:42 Skin: General appearance color normal MS/ Extremity: Moves all extremities, no obvious deformities appreciated, no edema noted to the lower extremities Neuro: Awake and alert, normal gait Psych: Behavior is normal, Mood is normal, Patient is cooperative and pleasant 22:42 : Pelvic Exam: Speculum exam: normal findings, NO FB IS APPRECIATED. Vital Signs: 22:41 BP 140 / 87; Pulse 86; Resp 18; Temp 98.1; Pulse Ox 98% on R/A; Weight 54.43 kg; Height tl2 5 ft. 0 in. (152.40 cm); Pain 0/10; 22:41 Body Mass Index 23.44 (54.43 kg, 152.40 cm) tl2 MDM: 22:42 Patient medically screened. [facility] 23:16 Data reviewed: vital signs, nurses notes. Data interpreted: Pulse oximetry: on room [facility] air. Counseling: I had a detailed discussion with the patient and/or guardian regarding: the historical points, exam findings, and any diagnostic results supporting the discharge/admit diagnosis, the need for outpatient follow up, to return to the emergency department if symptoms worsen or persist or if there are any questions or concerns that arise at home. 23:39 ED course: NO FB is appreciated. . [facility] 06/06 22:44 Order name: Pelvic Exam Setup; Complete Time: 23:17 [facility] Administered Medications: No medications were administered Disposition: 06/07 07:34 Co-signature as Attending Physician, Trevon Johnson MD I agree with the assessment and [facility] plan of care. Disposition: 06/06/18 23:18 Discharged to Home. Impression: Person with feared health complaint in whom no diagnosis is made. - Condition is Stable. - Discharge Instructions: Toxic Shock Syndrome, Adult. - Medication Reconciliation Form, Thank You Letter, Antibiotic Education, Prescription Opioid Use form. - Follow up: Private Physician; When: 2 - 3 days; Reason: Recheck today's complaints, Continuance of care, Re-evaluation by your physician. Signatures: Trevon Johnson MD MD cha Mickail, Joel, PA PA jmm Knox, Taylor, RN RN tl2 Corrections: (The following items were deleted from the chart) 06/06 23:30 23:18 06/06/2018 23:18 Discharged to Home. Impression: Person with feared health tl2 complaint in whom no diagnosis is made. Condition is Stable. Forms are Medication Reconciliation Form, Thank You Letter, Antibiotic Education, Prescription Opioid Use. Follow up: Private Physician; When: 2 - 3 days; Reason: Recheck today's complaints, Continuance of care, Re-evaluation by your physician. cameron
[2018-06-06 23:39] VITALS: BP 140/87; TEMP 98.1; O2SAT 98
== END 2018-06-06 23:30 | disposition home or self-care (01) ==
LOC: ER 22:25
DX: Z71.1 Person with feared health complaint in whom no diagnosis is made (principal); I10 Essential (primary) hypertension; F17.210 Nicotine dependence, cigarettes, uncomplicated; Z88.8 Allergy status to other drugs, medicaments and biological substances
CPT/HCPCS: 99283

== ENCOUNTER 2019-03-29 01:31 | Emergency (ER) | payer SELFPAY ==
[2019-03-29 02:12] LABS: Absolute Lymphocytes (CBC) 1.5 K/uL (0.7-4.9); Basophils % 0.5 % (0-1.3); Hematocrit 38.8 % (36.0-45.0); Lymphocytes % 15.9 % (15.3-44.8); MPV 7.8 fL (7.6-11.3); RBC Red Blood Cell Count 4.29 M/uL (3.86-4.86)
[2019-03-29 02:20] LABS: Urine Blood 3+ (NEG); Urine Glucose NEGATIVE (NEG); Urine Protein NEGATIVE (NEG)
[2019-03-29 02:23] LABS: Protime INR 0.98
[2019-03-29 02:26] LABS: Potassium 3.6 mmol/L (3.5-5.1)
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
[2019-03-29 05:05] VITALS: BP 99/62; TEMP 99; O2SAT 98
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
--- NOTE | 2019-03-29 10:10 | RAD REPORT ---
EXAM DESCRIPTION: Brynn Single View03/29/2019 1:58 am CLINICAL HISTORY: Chest pain COMPARISON: 2011 FINDINGS: Mild right basilar opacity may represent an area of atelectasis or confluence of ribs vess els. Left lung appears clear. The heart is normal size
== END 2019-03-29 04:33 | disposition home or self-care (01) ==
LOC: ER 01:31
DX: S00.90XA Unspecified superficial injury of unspecified part of head, initial encounter (principal); F10.129 Alcohol abuse with intoxication, unspecified; Y04.2XXA Assault by strike against or bumped into by another person, initial encounter; Y93.9 Activity, unspecified; Y92.9 Unspecified place or not applicable; Z88.8 Allergy status to other drugs, medicaments and biological substances; Z72.0 Tobacco use
CPT/HCPCS: 36415; 70450; 71045; 71260; 72125; 74177; 80048; 80320; 81003; 81025; 85025; 85610; 85730; 86850; 86900; 86901; 96360; 99285; Q9967

== ENCOUNTER 2021-02-05 21:15 | Emergency (ER) | payer SELFPAY ==
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
[2021-02-05 22:19] LABS: Absolute Lymphocytes (CBC) 1.5 K/uL (0.7-4.9); Basophils % 0.4 % (0-1.3); Hematocrit 36.8 % (36.0-45.0); Lymphocytes % 11.8 % (15.3-44.8)
[2021-02-05 22:32] LABS: Protime INR 1.06
[2021-02-05 22:33] LABS: Urine Blood 2+ (Negative); Urine Glucose Negative (Negative); Urine Protein Negative (Negative)
[2021-02-05 23:02] LABS: ALT/SGPT 27 U/L (12-78); AST/SGOT 22 U/L (15-37); Albumin 4.3 g/dL (3.4-5.0); Alkaline Phosphatase 50 U/L (45-117); BUN Blood Urea Nitrogen 9 mg/dL (7-18); Bicarbonate 20 mmol/L (21-32); Bilirubin Direct < 0.1 mg/dL (0-0.2); Bilirubin Total 0.3 mg/dL (0.2-1.0); Glucose Level 134 mg/dL (74-106); Protein, Total 7.7 g/dL (6.4-8.2); Sodium Level 141 mmol/L (136-145)
[2021-02-05 23:03] LABS: Potassium 2.9 mmol/L (3.5-5.1)
[2021-02-05 23:21] LABS: Barbiturates NEGATIVE (NEGATIVE); Benzodiazepines NEGATIVE (NEGATIVE); Cocaine NEGATIVE (NEGATIVE); METHAMPHETAM NEGATIVE (NEGATIVE); Methadone NEGATIVE (NEGATIVE); Opiates NEGATIVE (NEGATIVE); Phencyclidine NEGATIVE (NEGATIVE); THC Cannibis POSITIVE (NEGATIVE)
--- NOTE | 2021-02-06 01:25 | ER ---
Nurse's Notes [facility] Name: Christine Dong Age: 35 yrs Sex: Female : 1985 Arrival Date: 02/05/2021 Time: 21:16 Bed Waiting Private MD: Diagnosis: Presentation: 02/05 21:46 Chief complaint: Patient states: "I take Benadryl every night. I normally take 3 every kg night to help me sleep but I took 5, then 5 more then 5 more because it wasn't working. I just really wanted a good night sleep because my kid is sick and I'm sick." Pt denies SI or HI. Coronavirus screen: Vaccine status: Patient reports being unvaccinated. Client denies travel out of the [place] in the last 14 days. At this time, unable to obtain information related to travel outside the [place] At this time, the client does not indicate any symptoms associated with coronavirus-19. Ebola Screen: Patient negative for fever greater than or equal to 101.5 degrees Fahrenheit, and additional compatible Ebola Virus Disease symptoms Patient denies exposure to infectious person. Patient denies travel to an Ebola-affected area in the 21 days before illness onset. Initial Sepsis Screen: Does the patient meet any 2 criteria? No. Patient's initial sepsis screen is negative. Does the patient have a suspected source of infection? No. Patient's initial sepsis screen is negative. Risk Assessment: Do you want to hurt yourself or someone else? Patient reports no desire to harm self or others. Onset of symptoms was February 05, 2021 at 18:00. 21:46 Method Of Arrival: EMS: [facility] kg 21:46 Acuity: ROSELIA 3 kg Triage Assessment: 21:51 General: Appears in no apparent distress. Behavior is calm, cooperative, appropriate kg for age, quiet. Pain: Denies pain. 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 - Social history:: Smoking status: Patient reports the use of cigarette tobacco products, smokes one-half pack cigarettes per day, Patient uses street drugs, marijuana. Screenin:54 Abuse screen: Denies threats or abuse. Denies injuries from another. Nutritional kg screening: No deficits noted. Tuberculosis screening: No symptoms or risk factors identified. Fall Risk None identified. Vital Signs: 21:46 BP 142 / 98; Pulse 126; Resp 24; Temp 98.4; Pulse Ox 100% on R/A; Weight 58.97 kg (R); kg Height 5 ft. 0 in. (152.40 cm); Pain 0/10; 21:46 Body Mass Index 25.39 (58.97 kg, 152.40 cm) kg ED Course: 21:16 Patient arrived in ED. bp1 21:45 Debora Cannon, RN is Primary Nurse. kg 21:51 Triage completed. kg 21:51 Arm band placed on left wrist. kg 21:54 Patient has correct armband on for positive identification. kg 21:54 No provider procedures requiring assistance completed. Maintain EMS IV. Dressing kg intact. Good blood return noted. Site clean \\T\\ dry. Gauge \\T\\ site: 20 R AC. Administered Medications: No medications were administered Outcome: 02/06 01:24 Patient left the ED. kg Signatures: Kathie Guzman Kristen, RN RN kg
[2021-02-06 01:32] VITALS: BP 142/98; TEMP 98.4; O2SAT 100
== END 2021-02-06 01:24 | disposition left against medical advice (07) ==
LOC: ER 21:15
DX: Z53.21 Procedure and treatment not carried out due to patient leaving prior to being seen by health care provider (principal)
CPT/HCPCS: 36415; 80048; 80076; 80307; 80320; 80329; 81003; 85025; 85610; 85730; 99282

== ENCOUNTER 2021-05-26 17:31 | Emergency (ER) | payer SELFPAY ==
--- OUTSIDE RECORDS SUMMARY | 2021-05-26 17:33 | XMS REPORT | Continuity of Care Document ---
:1985 Author Organization [facility] t Address [address] [place] [address] Care Team Providers Name Role Phone Asked, [...] Comments Source History of tobacco Cigarette Smoker [facility] Tobacco use and 2017-10-10 2017-10-10 Never used [facility] exposure 00:00:00 00:00:00 Hospital Alcohol intake 2017-10-10 2017-10-10 .43 /d [facility] 00:00:00 00:00:00 Hospital Cigarettes smoked 2017-10-10 2017-10-[address] current (pack per 00:00:00 00:00:00 Hospita l day) - Reported Sex Assigned At [birth year] [facility] 00:00[facility]00 [facility]00 Hospital Smoking Status Start Date Stop Date Source Current every day smoker 2017-10-10 00:00:00 Met [facility] Medications This patient has no known medications. Procedures This patient has no known procedures. Results This patient has no known results.
[2021-05-26 23:07] LABS: Urine Blood 3+ (Negative); Urine Glucose Negative (Negative); Urine Protein Negative (Negative); Urine Specific Gravity 1.015 (1.005-1.030); Urine pH 6.5 (5.0-7.0)
[2021-05-26] MEDS ORDERED: METOCLOPRAMIDE 10 MG/2mL INJ ONE (23:11)
[2021-05-26] MEDS ORDERED: NA CHLORIDE 0.9% 1,000 ML ONE (23:12)
[2021-05-26] MEDS ORDERED: KETOROLAC 30 MG/ML INJ ONE (23:12)
[2021-05-26] MEDS ORDERED: DIPHENHYDRAMINE 50 MG/ML VIAL ONE (23:12)
[2021-05-26 23:29] LABS: Urine Specific Gravity/Preg 1.015 (1.005-1.030)
[2021-05-26 23:49] LABS: Urine Bacteria 20-50 /HPF (<20); Urine RBC 20-50 /HPF (NONE SEEN)
--- NOTE | 2021-05-27 00:38 | EDPHYS ---
Physician Documentation [facility] Name: Christine Dong Age: 35 yrs Sex: Female : 1985 Arrival Date: 05/26/2021 Time: 17:34 Bed 16 Private MD: ED Physician Chad Black HPI: 05/26 20:05 This 35 yrs old Female presents to ER via Unassigned with complaints of Headache, kb Vomiting. 20:05 The patient complains of pain to the forehead. The patient describes the headache as kb constant. The patient has experienced similar episodes in the past. The patient has not recently seen a physician. 20:05 Onset: The symptoms/episode began/occurred 3 day(s) ago. Associated signs and symptoms: kb Pertinent positives: nausea, vomiting. Severity of symptoms: At its worst the pain was moderate, in the emergency department the pain is unchanged. Headache History: The patient has had previous headaches and this one is similar to previous episodes. The symptoms are alleviated by nothing. the symptoms are aggravated by nothing. Pt reports migraine that is similar to previous ones, restless legs and low back pain that started 3 days ago. 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 - Social history:: Smoking status: Patient reports the use of cigarette tobacco products, smokes one-half pack cigarettes per day. ROS: 20:06 Constitutional: Negative for fever, chills, and weight loss. kb 20:06 Abdomen/GI: Positive for nausea and vomiting. 20:06 Back: Positive for pain at rest, of the low back area. 20:06 Neuro: Positive for headache. 20:06 All other systems are negative. Exam: 20:07 Constitutional: This is a well developed, well nourished patient who is awake, alert, kb and in no acute distress. Head/Face: Normocephalic, atraumatic. ENT: Moist Mucous membranes Respiratory: Respirations even and unlabored. No increased work of breathing. Talking in full sentences Abdomen/GI: Soft, non-tender. No distention Skin: Warm, dry with normal turgor. Normal color. MS/ Extremity: Pulses equal, no cyanosis. Neurovascular intact. Full, normal range of motion. Neuro: Awake and alert, GCS 15, oriented to person, place, time, and situation. Moves all extremities. Normal gait. Psych: Awake, alert, with orientation to person, place and time. Behavior, mood, and affect are within normal limits. 20:07 Back: CVA tenderness, that is moderate, is noted on the right. Vital Signs: 19:30 BP 116 / 89; Pulse 116; Resp 18; Temp 98.5; Pulse Ox 100% on R/A; Weight 54.43 kg (R); lp1 Height 5 ft. 1 in. (154.94 cm); 23:00 BP 107 / 52; Pulse 65; Resp 18; Pulse Ox 97% on R/A; mk 05/27 00:00 BP 109 / 76; Pulse 95; Resp 18; Temp 98.4; Pulse Ox 100% on R/A; mk 00:45 BP 106 / 76; Pulse 85; Resp 16; Temp 98.4; Pulse Ox 98% on R/A; mk 05/26 19:30 Body Mass Index 22.67 (54.43 kg, 154.94 cm) lp1 Juan Diego Coma Score: 05/26 20:06 Eye Response: spontaneous(4). Verbal Response: oriented(5). Motor Response: obeys kb commands(6). Total: 15. 23:00 Eye Response: spontaneous(4). Verbal Response: oriented(5). Motor Response: obeys mk commands(6). Total: 15. 05/27 00:00 Eye Response: spontaneous(4). Verbal Response: oriented(5). Motor Response: obeys mk commands(6). Total: 15. 00:45 Eye Response: spontaneous(4). Verbal Response: oriented(5). Motor Response: obeys mk commands(6). Total: 15. MDM: 05/26 19:28 Patient medically screened. kb 20:06 Data reviewed: vital signs, nurses notes. Data interpreted: Pulse oximetry: on room air kb is 100 %. Interpretation: normal. 05/27 00:37 Counseling: I had a detailed discussion with the patient and/or guardian regarding: the kb historical points, exam findings, and any diagnostic results supporting the discharge/admit diagnosis, lab results, radiology results, the need for outpatient follow up, a family practitioner, to return to the emergency department if symptoms worsen or persist or if there are any questions or concerns that arise at home. 05/26 19:29 Order name: Urine Microscopic Only; Complete Time: 00:01 kb 05/26 23:06 Order name: Urine Dipstick-Ancillary; Complete Time: 23:09 EDMS 05/26 23:09 Order name: Urine --Ancillary (enter results) cs9 05/26 23:09 Order name: CT Stone Protocol kb 05/26 23:09 Order name: Urine --Ancillary; Complete Time: 23:30 EDMS 05/26 23:50 Order name: Urine Culture EDWA 05/26 19:29 Order name: Urine Dipstick-Ancillary (obtain specimen); Complete Time: 23:10 kb 05/26 19:29 Order name: Urine Test (obtain specimen); Complete Time: 23:10 kb 05/26 19:29 Order name: IV Start; Complete Time: 23:40 kb Administered Medications: 05/26 23:40 Drug: NS 0.9% 1000 ml Route: IV; Rate: 1000 ml; Site: left antecubital; 05/27 01:09 Follow up: Response: No adverse reaction; IV Status: Completed infusion; IV Intake: mk 1000ml 05/26 23:40 Drug: Benadryl (diphenhydrAMINE) 12.5 mg Route: IVP; Site: left antecubital; 05/27 01:09 Follow up: Response: No adverse reaction; Marked relief of symptoms 05/26 23:40 Drug: Reglan (metoCLOPramide) 10 mg Route: IVP; Site: left antecubital; 05/27 01:09 Follow up: Response: No adverse reaction; Marked relief of symptoms 05/26 23:40 Drug: Ketorolac 30 mg Route: IVP; Site: left antecubital; 05/27 01:09 Follow up: Response: No adverse reaction Disposition: 06:05 Co-signature as Attending Physician, Chad Black MD I agree with the assessment and rn plan of care. Attestation: The patient's history, exam findings, diagnostics, and a summary of any interventions or procedures was reviewed in detail with Yenni GOLDSTEIN. Disposition Summary: 05/27/21 00:37 Discharge Ordered Location: Home kb Condition: Stable kb Diagnosis - UTI/ Urinary tract infection, site not specified kb - Migraine without aura, not intractable kb Followup: kb - With: Emergency Department - When: As needed - Reason: Worsening of condition Followup: kb - With: Private Physician - When: 2 - 3 days - Reason: Recheck today's complaints, Continuance of care, Re-evaluation by your physician Discharge Instructions: - Discharge Summary Sheet kb - Urinary Tract Infection, Adult, [id number] kb - Migraine Headache, [id number] kb Forms: - Medication Reconciliation Form kb - Thank You Letter kb - Antibiotic Education kb - Prescription Opioid Use kb Prescriptions: - Macrobid 100 mg Oral Capsule - take 1 capsule by ORAL route every 12 hours for 7 days; 14 capsule; Refills: 0, kb Product Selection Permitted Signatures: Dispatcher [employer] EDYenni Hicks, TRISTON VILLALPANDOP-Chad Hester MD MD rn Trinity Bowles, RN RN lp1 Nora Lora, RN RN mk
--- NOTE | 2021-05-27 00:38 | ER ---
Nurse's Notes [facility] Name: Christine Dong Age: 35 yrs Sex: Female : 1985 Arrival Date: 05/26/2021 Time: 17:34 Bed 16 Private MD: Diagnosis: UTI/ Urinary tract infection, site not specified;Migraine without aura, not intractable Presentation: 05/26 19:30 Chief complaint: Patient states: Low back pain, migraine, restless legs x 3 days; lp1 reports N/V. 19:30 Method Of Arrival: Ambulatory lp1 19:30 Coronavirus screen: At this time, the client does not indicate any symptoms associated lp1 with coronavirus-19. Ebola Screen: No symptoms or risks identified at this time. Initial Sepsis Screen: Does the patient meet any 2 criteria? No. Patient's initial sepsis screen is negative. Does the patient have a suspected source of infection? No. Patient's initial sepsis screen is negative. Risk Assessment: Do you want to hurt yourself or someone else? Patient reports no desire to harm self or others. Onset of symptoms was May 26, 2021. 19:30 Acuity: ROESLIA 3 lp1 Triage Assessment: 23:00 Headache History: The patient has had previous headaches. General: Appears mk uncomfortable, ill. Pain: Complains of pain in head Pain currently is 8 out of 10 on a pain scale. Quality of pain is described as aching, Pain began gradually. Pain: Also complains of strain on relationship, back pain. 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 - Social history:: Smoking status: Patient reports the use of cigarette tobacco products, smokes one-half pack cigarettes per day. Screenin/24 01:05 Abuse screen: Denies threats or abuse. Nutritional screening: No deficits noted. mk Tuberculosis screening: No symptoms or risk factors identified. Fall Risk No fall in past 12 months (0 pts). No secondary diagnosis (0 pts). IV access (20 points). Ambulatory Aid- None/Bed Rest/Nurse Assist (0 pts). Gait- Normal/Bed Rest/Wheelchair (0 pts) Mental Status- Oriented to own ability (0 pts). Total Viveros Fall Scale indicates No Risk (0-24 pts). Assessment: 05/26 23:00 General: Appears ill, Behavior is calm, cooperative. Pain: Complains of pain in face mk and back Pain does not radiate. Pain currently is 7 out of 10 on a pain scale. Quality of pain is described as aching, Pain began gradually, Is continuous, Alleviated by medications. Cardiovascular: Heart tones S1 S2 Capillary refill < 3 seconds Pulses are 2+ in right radial artery, right dorsalis pedis artery, left radial artery and left dorsalis pedis artery Rhythm is regular. Respiratory: Airway is patent Trachea midline Respiratory effort is even, unlabored, Respiratory pattern is regular, symmetrical, Breath sounds are clear bilaterally. GI: Abdomen is flat, Bowel sounds present X 4 quads. Abd is soft and non tender X 4 quads. : Urine is clear, Reports urgency, urinary frequency, since days. EENT: No signs and/or symptoms were reported regarding the EENT system. Derm: Skin is intact, is healthy with good turgor, Skin is Skin temperature is warm. Musculoskeletal: Range of motion: intact in all extremities. 23:00 Neuro: Level of Consciousness is awake, alert, obeys commands, Oriented to person, mk place, time, situation, Air Quality Technician are equal bilaterally Moves all extremities. Gait is steady. 23:00 Musculoskeletal: Reports pain in back. 05/27 00:05 Reassessment: No changes from previously documented assessment. Patient and/or family mk updated on plan of care and expected duration. Pain level reassessed. Patient is alert, oriented x 3, equal unlabored respirations, skin warm/dry/pink. 00:57 Reassessment: Patient and/or family updated on plan of care and expected duration. Pain mk level reassessed. Patient is alert, oriented x 3, equal unlabored respirations, skin warm/dry/pink. Patient states feeling better. Pain: Complains of pain in head and back Pain currently is 3 out of 10 on a pain scale. Quality of pain is described as aching, Pain began gradually, Is continuous, Alleviated by medications, rest. 01:03 Neuro: Reports headache in entire. Vital Signs: 05/26 19:30 BP 116 / 89; Pulse 116; Resp 18; Temp 98.5; Pulse Ox 100% on R/A; Weight 54.43 kg (R); lp1 Height 5 ft. 1 in. (154.94 cm); 23:00 BP 107 / 52; Pulse 65; Resp 18; Pulse Ox 97% on R/A; mk 05/27 00:00 BP 109 / 76; Pulse 95; Resp 18; Temp 98.4; Pulse Ox 100% on R/A; mk 00:45 BP 106 / 76; Pulse 85; Resp 16; Temp 98.4; Pulse Ox 98% on R/A; mk 05/26 19:30 Body Mass Index 22.67 (54.43 kg, 154.94 cm) lp1 Juan Diego Coma Score: 05/26 20:06 Eye Response: spontaneous(4). Verbal Response: oriented(5). Motor Response: obeys kb commands(6). Total: 15. 23:00 Eye Response: spontaneous(4). Verbal Response: oriented(5). Motor Response: obeys mk commands(6). Total: 15. 05/27 00:00 Eye Response: spontaneous(4). Verbal Response: oriented(5). Motor Response: obeys mk commands(6). Total: 15. 00:45 Eye Response: spontaneous(4). Verbal Response: oriented(5). Motor Response: obeys mk commands(6). Total: 15. ED Course: 05/26 17:34 Patient arrived in ED. mr 19:28 Yenni Cabezas FNP-C is [facility]. kb 19:28 Chad Black MD is Attending Physician. kb 20:21 Triage completed. lp1 22:47 Nora Lora, RN is Primary Nurse. mk 23:00 Patient has correct armband on for positive identification. Allergy band placed. Fall mk risk band placed. Bed in low position. Side rails up X 1. Pulse ox on. NIBP on. 23:00 Arm band placed on Patient placed Patient notified of wait time. mk 23:10 Urine --Ancillary (enter results) Sent. mk 23:10 Urine Microscopic Only Sent. mk 23:35 Inserted saline lock: 18 gauge in left antecubital area, using aseptic technique. 05/27 00:11 CT Stone Protocol In Process Unspecified. EDMS 01:05 No provider procedures requiring assistance completed. IV discontinued, intact, mk bleeding controlled, No redness/swelling at site. Pressure dressing applied. Administered Medications: 05/26 23:40 Drug: NS 0.9% 1000 ml Route: IV; Rate: 1000 ml; Site: left antecubital; 05/27 01:09 Follow up: Response: No adverse reaction; IV Status: Completed infusion; IV Intake: mk 1000ml 05/26 23:40 Drug: Benadryl (diphenhydrAMINE) 12.5 mg Route: IVP; Site: left antecubital; 05/27 01:09 Follow up: Response: No adverse reaction; Marked relief of symptoms 05/26 23:40 Drug: Reglan (metoCLOPramide) 10 mg Route: IVP; Site: left antecubital; 05/27 01:09 Follow up: Response: No adverse reaction; Marked relief of symptoms 05/26 23:40 Drug: Ketorolac 30 mg Route: IVP; Site: left antecubital; 05/27 01:09 Follow up: Response: No adverse reaction mk Intake: 01:09 IV: 1000ml; Total: 1000ml. Outcome: 00:37 Discharge ordered by . kb 01:07 Discharged to home 01:07 Discharged to home with family. 01:07 Condition: good 01:07 Discharge instructions given to patient. 01:09 Patient left the ED. Signatures: Dispatcher [employer] EDMS Yenni Cabezas, TRISTON SEPTIC TANK SETTER-David BlevinsaDina Laura, RN RN lp1 Nora Lora RN RN mk Corrections: (The following items were deleted from the chart) 01:10 00:00 BP 106 / 76; Pulse 85bpm; Resp 16bpm; Pulse Ox 98% RA; Temp 98.4F; mk 01:10 00:00 GCS: 15, [facility]
[2021-05-27 01:37] VITALS: BP 106/76; TEMP 98.4; O2SAT 98
--- NOTE | 2021-05-28 12:16 | RAD REPORT ---
EXAM DESCRIPTION: CT - Stone Protocol - 05/27/2021 4:19 am CLINICAL HISTORY: 35 years, Female, FLANK PAIN COMPARISON: None. TECHNIQUE: Multiple transaxial tomograms of the abdomen and pelvis were performed from the lung base s to the symphysis pubis 3 mm slice thickness at 3 mm, without administration of IV and oral contrast . Multiplanar reformats in the sagittal and coronal plane were generated and reviewed. This exam was performed according to our departmental dose-optimization protocol, which includes auto mated exposure control, adjustment of the mA and/or kV according to patient size and/or use of iterat sheridan reconstruction technique. FINDINGS: The lack of IV and oral contrast limits evaluation of solid organs, subtle lesions cannot be excluded. The lung bases demonstrate to be clear. Grossly the unopacified liver, gallbladder, pancreas, spleen and adrenal glands demonstrate to be wit hin normal limits, no significant focal lesions were identified. The kidneys demonstrate grossly unremarkable. There is no evidence for nephrolithiasis and/or hydro nephrosis. No focal masses were demonstrated. The ureters displays normal appearance with normal caliber, no hydroureter was seen. Grossly the unopacified stomach, small bowel and large bowel demonstrate to be within normal limits. There is no evidence for bowel dilatation/or free air. The appendix demonstrate to be grossly within normal limits. Mild fecal stasis. The urinary bladder demonstrate to be within normal limits. The uterus demonstrate to be within rossi l limits. No adnexal masses are identified. The aorta demonstrate to be within normal limits. There is no retroperitoneal lymphadenopathy. There is no evidence for ascites. The rest of the soft tiss ue demonstrate to be grossly unremarkable. IMPRESSION: No evidence for nephrolithiasis and/or hydronephrosis. Mild fecal stasis. E Lectronically signed by: Trace Paredes MD 05/27/2021 12:17 AM AUTOMOTIVE ELECTRICIAN HELPER Due to temporary technical issues with the PACS/Fluency reporting system, reports are being signed by the in house radiologists without review as a courtesy to insure prompt reporting. The interpreting radiologist is fully responsible for the content of the report.
== END 2021-05-27 01:09 | disposition home or self-care (01) ==
LOC: ER 17:31
DX: G43.009 Migraine without aura, not intractable, without status migrainosus (principal); N39.0 Urinary tract infection, site not specified; I10 Essential (primary) hypertension; F17.210 Nicotine dependence, cigarettes, uncomplicated; Z88.8 Allergy status to other drugs, medicaments and biological substances
CPT/HCPCS: 74176; 76377; 81003; 81015; 81025; 87086; 87088; 96361; 96374; 96375; 99284; J1200; J2765; J7030

== ENCOUNTER 2021-12-10 20:00 | Emergency (ER) | payer SELFPAY ==
[2021-12-10 20:21] LABS: Urine Blood 3+ (Negative); Urine Glucose Negative (Negative); Urine Protein Negative (Negative); Urine Specific Gravity >=1.030 (1.005-1.030)
[2021-12-10] MEDS ORDERED: NA CHLORIDE 0.9% 0 ML ONE (20:34)
[2021-12-10 20:59] LABS: Urine Bacteria 20-50 /HPF (<20)
--- NOTE | 2021-12-10 21:04 | EDPHYS ---
Physician Documentation [facility] Name: Christine Dong Age: 36 yrs Sex: Female : 1985 Arrival Date: 12/10/2021 Time: 20:02 Bed 11 Private MD: ED Physician Trevon Johnson HPI: 12/11 00:12 This 36 yrs old Female presents to ER via Ambulatory with complaints of Flank Pain, kb Back Pain. 00:12 Onset: The symptoms/episode began/occurred Onset: The symptoms/episode began/occurred 1 kb week(s) ago. Severity of pain: At its worst the pain was mild in the emergency department the pain is unchanged. The patient has not experienced similar symptoms in the past. The patient has not recently seen a physician. 00:12 The patient complains of pain in the left flank and right flank. The pain does not kb radiate. Modifying factors: The symptoms are alleviated by nothing. the symptoms are aggravated by nothing. Associated signs and symptoms: Pertinent positives: urinary frequency, Pertinent negatives: diarrhea, dizziness, dysuria, fever, headache, hematuria, nausea, pain radiating to the lower extremities, vomiting. LIBRARY HISTORIAN: 12/10 20:09 LMP 12/03/[address] 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 - Social history:: Smoking status: Patient denies any tobacco usage or history of. ROS: 12/11 00:11 Constitutional: Negative for fever, chills, and weight loss. kb : Positive for flank pain, urinary frequency. All other systems are negative. Exam: 00:11 Constitutional: This is a well developed, well nourished patient who is awake, alert, kb and in no acute distress. Head/Face: Normocephalic, atraumatic. ENT: Moist Mucous membranes Cardiovascular: Regular rate and rhythm with a normal S1 and S2. No gallops, murmurs, or rubs. No pulse deficits. Respiratory: Respirations even and unlabored. No increased work of breathing. Talking in full sentences Abdomen/GI: Soft, non-tender. No distention Skin: Warm, dry with normal turgor. Normal color. MS/ Extremity: Pulses equal, no cyanosis. Neurovascular intact. Full, normal range of motion. Neuro: Awake and alert, GCS 15, oriented to person, place, time, and situation. Moves all extremities. Normal gait. Psych: Awake, alert, with orientation to person, place and time. Behavior, mood, and affect are within normal limits. 00:11 Back: CVA tenderness, that is mild, is noted bilaterally. Vital Signs: 12/10 20:07 BP 139 / 106; Pulse 86; Resp 20; Temp 97.6(TE); Pulse Ox 100% on R/A; Weight 49.9 kg; bh1 Height 5 ft. 4 in. (162.56 cm); Pain 6/10; 20:07 Body Mass Index 18.88 (49.90 kg, 162.56 cm) bh1 MDM: 20:10 Patient medically screened. kb 21:01 Data reviewed: vital signs, nurses notes. Data interpreted: Pulse oximetry: on room air kb is 100 %. Interpretation: normal. Counseling: I had a detailed discussion with the patient and/or guardian regarding: the historical points, exam findings, and any diagnostic results supporting the discharge/admit diagnosis, lab results, the need for outpatient follow up, a family practitioner, to return to the emergency department if symptoms worsen or persist or if there are any questions or concerns that arise at home. ED course: Pt does not want blood work or CT scan. STates "I was just hoping to come get a urine test and antibiotics. I don't think I need the other stuff.". 12/10 20:10 Order name: Urine Microscopic Only; Complete Time: 21:01 kb 12/10 20:21 Order name: Urine Dipstick-Ancillary; Complete Time: 20:23 EDMS 12/10 20:10 Order name: Urine Dipstick-Ancillary (obtain specimen); Complete Time: 20:22 kb 12/10 20:10 Order name: Urine Test (obtain specimen); Complete Time: 20:22 kb 12/10 21:02 Order name: Urine Culture EDMS Administered Medications: 21:07 Not Given (Patient Refused): NS 0.9% 1000 ml IV at 1 bolus Per protocol; 1000 mL bolus jb4 Disposition Summary: 12/10/21 21:02 Discharge Ordered Location: Home kb Condition: Stable kb Diagnosis - UTI/ Urinary tract infection, site not specified kb Followup: kb - With: Emergency Department - When: As needed - Reason: Worsening of condition Followup: kb - With: Private Physician - When: 2 - 3 days - Reason: Recheck today's complaints, Continuance of care, Re-evaluation by your physician Discharge Instructions: - Discharge Summary Sheet kb - Urinary Tract Infection, Adult, [id number] kb Forms: - Medication Reconciliation Form kb - Thank You Letter kb - Antibiotic Education kb - Prescription Opioid Use kb Prescriptions: - Augmentin 875-125 mg Oral Tablet - take 1 tablet by ORAL route every 12 hours for 10 days; 20 tablet; Refills: 0, kb Product Selection Permitted Signatures: Dispatcher [employer] EDMS Yenni Cabezas, ROSIE-C FOREIGN EXCHANGE CLERK-Mary Merchant RN RN 1 Seth Bhandari RN jb4 Corrections: (The following items were deleted from the chart) 21: 20:23 IV Saline Lock ordered. blake jb4 21:07 20:23 Labs collected and sent ordered. blake jb4 12/11 00:13 00:12 Onset: The symptoms/episode began/occurred kb
--- NOTE | 2021-12-10 21:04 | ER ---
Nurse's Notes [facility] Name: Christine Dong Age: 36 yrs Sex: Female : 1985 Arrival Date: 12/10/2021 Time: 20:02 Bed 11 Private MD: Diagnosis: UTI/ Urinary tract infection, site not specified Presentation: 12/10 20:07 Chief complaint: Patient states: FRONT LEFT ABDOMEN PAIN THAT MOVES TO THE BACK ON BOTH [facility] SIDES. Coronavirus screen: Vaccine status: Patient reports being unvaccinated. At this time, the client does not indicate any symptoms associated with coronavirus-19. Ebola Screen: Patient negative for fever greater than or equal to 101.5 degrees Fahrenheit, and additional compatible Ebola Virus Disease symptoms. Initial Sepsis Screen: Does the patient meet any 2 criteria? No. Patient's initial sepsis screen is negative. Does the patient have a suspected source of infection? No. Patient's initial sepsis screen is negative. Risk Assessment: Do you want to hurt yourself or someone else? Patient reports no desire to harm self or others. 20:07 Method Of Arrival: Ambulatory [facility] 20:07 Acuity: ROSELIA 4 [facility] Triage Assessment: 20:09 General: Appears in no apparent distress. Behavior is calm, cooperative, appropriate [facility] for age. Pain: Complains of pain in left lower quadrant AND BILATERAL BACK PAIN. Musculoskeletal: Circulation, motion, and sensation intact. 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 - Social history:: Smoking status: Patient denies any tobacco usage or history of. Screenin:07 Abuse screen: Denies threats or abuse. Nutritional screening: No deficits noted. jb4 Tuberculosis screening: No symptoms or risk factors identified. Fall Risk None identified. Assessment: 21:07 Reassessment: Patient appears in no apparent distress at this time. Patient and/or jb4 family updated on plan of care and expected duration. Pain level reassessed. Patient is alert, oriented x 3, equal unlabored respirations, skin warm/dry/pink. Vital Signs: 20:07 BP 139 / 106; Pulse 86; Resp 20; Temp 97.6(TE); Pulse Ox 100% on R/A; Weight 49.9 kg; 1 Height 5 ft. 4 in. (162.56 cm); Pain 6/10; 20:07 Body Mass Index 18.88 (49.90 kg, 162.56 cm) [facility] ED Course: 20:02 Patient arrived in ED. bp1 20:07 Yenni Cabezas [facility]-C [facility]. kb 20:07 Trevon Johnson MD is Attending Physician. kb 20:09 Triage completed. bh1 20: Arm band placed on right wrist. 1 20:22 Urine Microscopic Only Sent. 1 20:26 Seth Bhandari, RN is Primary Nurse. jb4 21:07 Patient has correct armband on for positive identification. Bed in low position. Call jb4 light in reach. Side rails up X 1. 21:07 No provider procedures requiring assistance completed. Patient did not have IV access jb4 during this emergency room visit. Administered Medications: 21:07 Not Given (Patient Refused): NS 0.9% 1000 ml IV at 1 bolus Per protocol; 1000 mL bolus jb4 Medication: 21:07 VIS not applicable for this client. jb4 Outcome: 21:02 Discharge ordered by . kb 21:07 Discharged to home ambulatory. jb4 21:07 Condition: stable 21:07 Discharge instructions given to patient, Instructed on discharge instructions, follow up and referral plans. medication usage, Demonstrated understanding of instructions, follow-up care, medications, Prescriptions given X 1. 21:08 Patient left the ED. jb4 Signatures: Yenni Cabezas FNP-C FNP-Seth Floyd, RN RN jb4 Kathie Guzman bp1 Mary Medrano, RN RN 1
[2021-12-10 21:12] VITALS: BP 139/106; TEMP 97.6; O2SAT 100
== END 2021-12-10 21:08 | disposition home or self-care (01) ==
LOC: ER 20:00
DX: N39.0 Urinary tract infection, site not specified (principal); I10 Essential (primary) hypertension; Z87.442 Personal history of urinary calculi; Z88.8 Allergy status to other drugs, medicaments and biological substances
CPT/HCPCS: 81003; 81015; 87086; 87088; 99283; J7030

== ENCOUNTER 2021-12-17 13:36 | Inpatient (IN) | payer SELFPAY ==
[2021-12-17] MEDS ORDERED: ONDANSETRON 4 MG/2 ML VIAL ONE (14:18)
[2021-12-17] MEDS ORDERED: CEFTRIAXONE 1000 MG/VIAL ONE (14:18)
[2021-12-17] MEDS ORDERED: MORPHINE 2 MG/ML SYR ONE (14:18)
[2021-12-17] MEDS ORDERED: NA CHLORIDE 0.9% 2,000 ML ONE (14:19)
[2021-12-17 14:22] LABS: Hematocrit 35.3 % (36.0-45.0); Lymphocytes % 37.6 % (15.3-44.8); MCV 89.6 fL (80-100); MPV 7.8 fL (7.6-11.3); RBC Red Blood Cell Count 3.94 M/uL (3.86-4.86)
[2021-12-17 14:24] LABS: Protime INR 1.08
[2021-12-17 14:33] LABS: Albumin 3.6 g/dL (3.4-5.0); Bilirubin Total 0.5 mg/dL (0.2-1.0); Potassium 3.1 mmol/L (3.5-5.1); Protein, Total 7.2 g/dL (6.4-8.2)
[2021-12-17] MEDS ORDERED: KETOROLAC 30 MG/ML INJ ONE (14:36)
[2021-12-17 14:45] LABS: Urine Blood 3+ (Negative); Urine Glucose Negative (Negative); Urine Protein Negative (Negative); Urine Specific Gravity 1.025 (1.005-1.030)
[2021-12-17 15:09] LABS: Urine Bacteria 20-50 /HPF (<20); Urine Trichomonas Present /HPF (None Seen)
--- NOTE | 2021-12-17 15:11 | RAD REPORT ---
EXAM DESCRIPTION: CT - Stone Protocol - 12/17/2021 3:00 pm CLINICAL HISTORY: Flank pain, kidney stone suspected COMPARISON: Stone Protocol dated 05/26/2021 TECHNIQUE: Axial 3 mm thick images were obtained without oral or IV contrast. The [id number] span s the entirety of the system including uppermost abdomen and lung bases. All CT scans are performed using dose optimization technique as appropriate and may include automated exposure control or mA/KV adjustment according to patient size. FINDINGS: No hydronephrosis is present and no obstructing ureteral calculi. No nonobstructing calcul i seen. There is no perinephric stranding. Slight fullness of the right renal pelvis is not clearly d ifferent from comparison. Numerous pelvic floor calcifications are present believed be phleboliths an d matching the May 2021 study. No suspicious renal masses. Isodense masses and pyelonephritis ar e not excluded on a stone protocol CT scan. No significant adrenal finding. No urinary bladder suspic ious finding. Uterus and ovaries show no suspicious findings. Imaged portions of the liver, spleen and pancreas show no suspicious findings on non-contrast imaging . No gallbladder or biliary tree abnormality identified. No suspicious bowel findings. No appendicitis or other emergent finding. Large stool volume is presen t filling the entirety of the colon without dilatation, mass or focal wall thickening. No hernia, mass or bulky lymphadenopathy noted. No free air, free fluid or inflammatory stranding. No significant bony abnormality. IMPRESSION: No hydronephrosis, obstructing calculus or acute finding identifiable. Isodense masses and pyelonephritis are not excluded on stone protocol technique. Large stool volume filling but not dilating the entirety of the colon. No appendicitis or emergent GI finding.
--- NOTE | 2021-12-17 15:29 | ER ---
Nurse's Notes [facility] Name: Christine Dong Age: 36 yrs Sex: Female : 1985 Arrival Date: 12/17/2021 Time: 13:38 Bed 17 Private MD: Diagnosis: Sepsis, unspecified organism;Pyelonephritis acute Presentation: 12/17 13:51 Chief complaint: Patient states: PT PRESENTED WITH RIGHT ABDOMINAL PAIN, AND RIGHT adams FLANK PAIN. PT CURRENTLY ON ANITBIOTICS FOR UTI-PT REFUSE CT SCAN TO R/O KIDNEY STONE AND WOULD LIKE TO R/O KIDNEY STONE TODAY. Coronavirus screen: Vaccine status: Patient reports being unvaccinated. Ebola Screen: Patient denies travel to an Ebola-affected area in the 21 days before illness onset. Initial Sepsis Screen: Does the patient meet any 2 criteria? RR > 20 per min. HR > 90 bpm. Does the patient have a suspected source of infection? Yes: Acute abdominal pain. Risk Assessment: Do you want to hurt yourself or someone else? Patient reports no desire to harm self or others. Onset of symptoms was December 11, 2021. 13:51 Method Of Arrival: Ambulatory adams 13:51 Acuity: ROSELIA 3 adams Triage Assessment: 13:54 General: Appears uncomfortable, Behavior is. Pain: Complains of pain in right mid back adams and abdomen. GI: Bowel sounds present X 4 quads. Reports upper abdominal pain, Pain is 7 out of 10 on a pain scale. Musculoskeletal: Circulation, motion, and sensation intact. 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 - Social history:: Smoking status: Patient reports the use of cigarette tobacco products, smokes one pack cigarettes per day. Screenin:56 Abuse screen: Denies threats or abuse. Denies injuries from another. Nutritional adams screening: No deficits noted. Tuberculosis screening: No symptoms or risk factors identified. Fall Risk None identified. Assessment: 13:56 Neuro: Level of Consciousness is awake, alert, obeys commands, Oriented to person, adams place, time. 20:25 Reassessment: report given to Vijay RN for room 270. bb Vital Signs: 13:51 BP 147 / 94; Pulse 127; Resp 22; Temp 99.4; Pulse Ox 98% on R/A; Weight 54.43 kg; adams Height 5 ft. (152.40 cm); 15:16 BP 96 / 57; Pulse 86; Resp 17; Pulse Ox 99% on R/A; adams 13:51 Body Mass Index 23.44 (54.43 kg, 152.40 cm) adams ED Course: 13:38 Patient arrived in ED. mr 13:40 Trevon Mcpherson PA is PHCP. cp 13:40 Trevon Johnson MD is Attending Physician. cp 13:50 First set of blood cultures drawn by me. dh3 13:51 Katharine Nick, AUBREE is Primary Nurse. adams 13:54 Triage completed. adams 13:56 Patient has correct armband on for positive identification. Bed in low position. adams 13:56 No provider procedures requiring assistance completed. adams 14:00 Initial lab(s) drawn, by nd, sent to lab. Second set of blood cultures drawn by me. 3 Inserted saline lock: 20 gauge in right antecubital area, using aseptic technique. Blood collected. 15:02 CT Stone Protocol In Process Unspecified. EDMS 15:26 Radha Mejía MD is Hospitalizing Provider. cp Administered Medications: 14:00 Drug: NS 0.9% (30 ml/kg) 30 ml/kg Route: IV; Rate: bolus; Site: right antecubital; adams 16:35 Follow up: IV Status: Completed infusion adams 14:00 Drug: NS 0.9% (30 ml/kg) 30 ml/kg Route: IV; Rate: bolus; Site: right antecubital; adams 14:29 Not Given (Other Intervention Used): morphine 2 mg IVP once over 4 mins cp 14:49 Drug: Zofran (Ondansetron) 4 mg Route: IVP; Site: right antecubital; adams 14:50 Follow up: Response: No adverse reaction adams 14:49 Drug: Rocephin - (cefTRIAXone) 1 grams Route: IVPB; Infused Over: 30 mins; Site: right adams antecubital; 14:50 Follow up: IV Status: Completed infusion 14:50 Drug: Ketorolac 15 mg Route: IVP; Site: right antecubital; adams 14:50 Follow up: Response: No adverse reaction adams 18:07 Drug: fentaNYL (PF) 25 mcg Route: IVP; Site: right antecubital; adams Medication: 13:56 VIS not applicable for this client. adams Outcome: 15:28 Decision to Hospitalize by Provider. cp 20:37 Patient left the ED. bb Signatures: Dispatcher [employer] Dina Moon mr Joana Herman RN RN bb Trevon Mcpherson PA PA cp Herrera, [facility] Christelle-StageKatharine ott RN RN adams
--- NOTE | 2021-12-17 15:29 | EDPHYS ---
Physician Documentation [facility] Name: Christine Dong Age: 36 yrs Sex: Female : 1985 Arrival Date: 12/17/2021 Time: 13:38 Bed 17 Private MD: ED Physician Trevon Johnson HPI: 12/17 13:45 This 36 yrs old Female presents to ER via Unassigned with complaints of Back Pain. cp 13:45 The patient presents with pain that is acute, with no known mechanism of injury. The cp symptoms are located in the right flank. 13:45 Onset: The symptoms/episode began/occurred 6 day(s) ago. cp 13:45 The pain radiates to the abdomen. Associated signs and symptoms: Pertinent positives: cp dysuria, nausea, Pertinent negatives: chest pain, headache, incontinence, weakness. The patient has been recently seen at the [facility] Emergency Department, this week, for similar complaints was given a prescription for antibiotics, treated for UTI with Augmentin. 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 - Social history:: Smoking status: Patient reports the use of cigarette tobacco products, smokes one pack cigarettes per day. ROS: 13:50 Back: Positive for pain at rest, pain with movement. cp 13:50 Constitutional: Negative for fever, poor PO intake. cp 13:50 Eyes: Negative for injury, pain, redness, and discharge. cp 13:50 ENT: Negative for drainage from ear(s), ear pain, sore throat, difficulty swallowing, difficulty handling secretions. 13:50 Respiratory: Negative for cough, shortness of breath, wheezing. 13:50 Abdomen/GI: Positive for abdominal pain, Negative for vomiting, diarrhea, constipation. 13:50 : Positive for urinary symptoms. 13:50 Neuro: Negative for altered mental status, headache, weakness. 13:50 All other systems are negative. Exam: 13:55 Constitutional: The patient appears in no acute distress, alert, awake, non-toxic, well cp developed, well nourished, uncomfortable. 13:55 Head/Face: Normocephalic, atraumatic. cp 13:55 Eyes: Periorbital structures: appear normal, Conjunctiva: normal, no exudate, no injection, Sclera: no appreciated abnormality, Lids and lashes: appear normal, bilaterally. 13:55 ENT: External ear(s): are unremarkable, Nose: is normal, Mouth: Lips: moist, Oral mucosa: pink and intact, moist, Posterior pharynx: Airway: no evidence of obstruction, patent. 13:55 Chest/axilla: Inspection: normal. 13:55 Cardiovascular: Rate: tachycardic, Rhythm: regular. 13:55 Respiratory: the patient does not display signs of respiratory distress, Respirations: normal, no use of accessory muscles, no retractions, labored breathing, is not present, Breath sounds: are clear throughout, no decreased breath sounds, no stridor, no wheezing. 13:55 Abdomen/GI: Inspection: abdomen appears normal, Bowel sounds: active, all quadrants, Palpation: soft, in all quadrants, moderate abdominal tenderness, in the right upper quadrant and right lower quadrant, rebound tenderness, is not appreciated, involuntary guarding, is not appreciated. 13:55 Back: pain, that is severe, of the right mid back, ROM is painful, with all movement. 13:55 Neuro: Orientation: to person, place \\T\\ time. Mentation: is normal, Motor: moves all fours, strength is normal, Sensation: is normal. Vital Signs: 13:51 BP 147 / 94; Pulse 127; Resp 22; Temp 99.4; Pulse Ox 98% on R/A; Weight 54.43 kg; adams Height 5 ft. (152.40 cm); 15:16 BP 96 / 57; Pulse 86; Resp 17; Pulse Ox 99% on R/A; adams 13:51 Body Mass Index 23.44 (54.43 kg, 152.40 cm) adams MDM: 13:42 Patient medically screened. cp 14:00 Differential diagnosis: Cholelithiasis Pyelonephritis Ureterolithiasis. cp 15:20 Post IV fluid administration reassessment for Sepsis: Client prescribed 30 mL/kg IVF. cp Sepsis focused reassessment complete. Focused Assessment performed: December 17, 2021 at 15:20 Heart: Regular rate/rhythm noted. Lungs: Noted to be clear bilaterally. Current vital signs reviewed: Yes. Neuro: no change Cardio: Cardiovascular examination improved from previous exam. Heart rate and blood pressure have improved. Respiratory: no change. 15:24 Physician consultation: Radha Mejía MD was called at 15:24, left message on voicemail. 15:25 Data reviewed: vital signs, nurses notes, lab test result(s), radiologic studies, CT cp scan. 15:25 Counseling: I had a detailed discussion with the patient and/or guardian regarding: the historical points, exam findings, and any diagnostic results supporting the discharge/admit diagnosis, lab results, radiology results, will admit for continued treatment with IV antibiotics due to failed outpatient treatment. 12/17 13:48 Order name: Blood Culture Adult (2) 12/17 13:48 Order name: CBC with Diff; Complete Time: 15:10 12/17 15:10 Interpretation: Normal except: HCT 35.3. 12/17 13:48 Order name: CMP; Complete Time: 15:10 12/17 15:10 Interpretation: Normal except: K 3.1; GLUC 171; A/G 1.0; GLOB 3.6; CA 8.2; AST 13. 12/17 13:48 Order name: Lactate; Complete Time: 15:12 12/17 15:12 Interpretation: Abnormal: LAC 2.3. 12/17 13:48 Order name: Protime (+inr); Complete Time: 15:10 12/17 13:48 Order name: Ptt, Activated; Complete Time: 15:10 12/17 13:48 Order name: Urine Culture 12/17 13:48 Order name: Urine Microscopic Only; Complete Time: 15:11 12/17 15:11 Interpretation: Normal except: URBC 11-20; UBACT 20-50; TRICH Present. 12/17 14:45 Order name: Urine Dipstick-Ancillary; Complete Time: 15:10 EDMS 12/17 15:12 Interpretation: Normal except: UBLD 3+; UESTR 3+. 12/17 16:32 Order name: COVID-19 SARS RT PCR (Document "Date of Onset" if Symptomatic) dh3 12/17 18:02 Order name: CBC with Automated Diff EDMS 12/17 18:02 Order name: CBC with Automated Diff EDMS 12/17 18:02 Order name: Comprehensive Metabolic Panel EDAK 12/17 18:02 Order name: Comprehensive Metabolic Panel EDAK 12/17 13:48 Order name: Accucheck; Complete Time: 14:51 cp 12/17 13:48 Order name: Cardiac monitoring; Complete Time: 14:06 cp 12/17 13:48 Order name: IV Saline Lock - Large Bore; Complete Time: 14:06 cp 12/17 13:48 Order name: Labs collected and sent; Complete Time: 14:06 cp 12/17 13:48 Order name: O2 Per Protocol; Complete Time: 14:06 cp 12/17 13:48 Order name: O2 Sat Monitoring; Complete Time: 14:51 cp 12/17 13:54 Order name: CT Stone Protocol; Complete Time: 15:12 cp 12/17 18:02 Order name: Regular EDAK 12/17 19:09 Order name: Lactate Sepsis 2 HR Follow-up [facility] 12/17 13:48 Order name: Urine Dipstick-Ancillary (obtain specimen); Complete Time: 14:51 cp 12/17 13:48 Order name: Urine Test (obtain specimen); Complete Time: 14:51 cp Administered Medications: 14:00 Drug: NS 0.9% (30 ml/kg) 30 ml/kg Route: IV; Rate: bolus; Site: right antecubital; adams 16:35 Follow up: IV Status: Completed infusion adams 14:00 Drug: NS 0.9% (30 ml/kg) 30 ml/kg Route: IV; Rate: bolus; Site: right antecubital; adams 14:29 Not Given (Other Intervention Used): morphine 2 mg IVP once over 4 mins cp 14:49 Drug: Zofran (Ondansetron) 4 mg Route: IVP; Site: right antecubital; adams 14:50 Follow up: Response: No adverse reaction adams 14:49 Drug: Rocephin - (cefTRIAXone) 1 grams Route: IVPB; Infused Over: 30 mins; Site: right adams antecubital; 14:50 Follow up: IV Status: Completed infusion adams 14:50 Drug: Ketorolac 15 mg Route: IVP; Site: right antecubital; adams 14:50 Follow up: Response: No adverse reaction adams 18:07 Drug: fentaNYL (PF) 25 mcg Route: IVP; Site: right antecubital; adams Disposition: 07/17 13:59 Co-signature as Attending Physician, Trevon Johnson MD I agree with the assessment and valentin plan of care. Disposition Summary: 12/17/21 15:28 Hospitalization Ordered Hospitalization Status: Inpatient Admission cp Provider: Radha Mejía cp Condition: Stable cp Problem: new cp Symptoms: have improved cp Bed/Room Type: Standard cp Location: [facility](12/17/21 19:07) Room Assignment: [facility]-(12/17/21 19:07) Diagnosis - Sepsis, unspecified organism cp - Pyelonephritis acute cp Forms: - Medication Reconciliation Form cp - SBAR form cp Signatures: Dispatcher [employer] Ayla Vizcaino RN Trevon Nichols MD MD cha Smirch, Shelby, RN RN ss Page, Corey, PA PA cp Christelle-StagerKatharine RN RN adams Corrections: (The following items were deleted from the chart) 12/17 18:34 15:28 cp 19:07 15:28 Telemetry/MedSurg (Inpatient) cp 19:07 18:34 218 dw
[2021-12-17] MEDS ORDERED: FENTANYL CITR 100 MCG/2 ML ONE (17:33)
[2021-12-17] MEDS ORDERED: MORPHINE 2 MG/ML SYR IV PRN (17:56)
[2021-12-17] MEDS ORDERED: ONDANSETRON 4 MG/2 ML VIAL IV PRN (17:56)
--- NOTE | 2021-12-17 18:02 | P.HP ---
Certification for Inpatient Patient admitted to: Observation With expected LOS: <2 Midnights Patient will require the following post-hospital care: None Practitioner: I am a practitioner with admitting privileges, knowledge of patient current condition, hospital course, and medical plan of care. Services: Services provided to patient in accordance with Admission requirements found in Title 42 Section 412.3 of the Code of Federal Regulations Patient History Date of Service: 12/17/21 Reason for admission: PYELONEPHRITIS History of Present Illness: PT IS A 36YO WITH PYELONEPHRITIS Allergies promethazine Allergy (Verified 07/22/12 12:30) Hives/Rash - Past Medical/Surgical History Past Medical History: Patient denies medical history Past Surgical History: Patient denies surgical history - Family History Father Family History: Reviewed- Non-Contributory - Social History Smoking Status: Former smoker Alcohol use: No CD- Drugs: No Review of Systems 10-point ROS is otherwise unremarkable Physical Examination - Vital Signs Temperature: 98 F Blood Pressure: 140/70 Pulse: 80 Respirations: 18 Pulse Ox (%): 95 - Physical Exam General: Alert, In no apparent distress HEENT: Atraumatic, PERRLA, Mucous membr. moist/pink, EOMI, Sclerae nonicteric Neck: Supple, 2+ carotid pulse no bruit, No LAD, Without JVD or thyroid abnormality Respiratory: Clear to auscultation bilaterally, Normal air movement Cardiovascular: Regular rate/rhythm, Normal S1 S2 Gastrointestinal: Normal bowel sounds, No tenderness Musculoskeletal: No tenderness Integumentary: No rashes Neurological: Normal gait, Normal speech, Normal strength at 5/5 x4 extr, Normal tone, Normal affect Lymphatics: No axilla or inguinal lymphadenopathy - Studies Laboratory Data (last 24 hrs) 12/17/21 14:00: PT 11.9, INR 1.08, APTT 35.3 12/17/21 14:00: Sodium 139, Potassium 3.1 L, BUN 9, Creatinine 0.80, Glucose 171 H, Total Bilirubin 0.5, AST 13 L, ALT 25, Alkaline Phosphatase 45 12/17/21 14:00: WBC 5.2, Hgb 12.1, Hct 35.3 L, Plt Count 255 Assessment & Plan - Problems (Diagnosis) (1) Pyelonephritis Current Visit: Yes Status: Acute (2) Trichomonas infection Current Visit: Yes Status: Acute - Advance Directives Does patient have a Living Will: No Does patient have a Durable POA for Healthcare: No
[2021-12-17] MEDS: NA CHLORIDE 0.9% 1,000 ML IV SCH (20:42)
[2021-12-17 20:57] VITALS: O2SAT 99
[2021-12-17] MEDS: METRONIDAZOLE 500mg IVPB 500 MG/100 ML BAG IV SCH (21:09)
[2021-12-17] MEDS ORDERED: METRONIDAZOLE 500mg IVPB 1,000 MG/200 ML BAG IV ONE (21:13)
[2021-12-17 21:40] VITALS: BMI 3374.4
[2021-12-17] MEDS: CEFTRIAXONE 1,000 MG in NA CHLORIDE 0.9% 50 ML IVPB SCH (21:57)
[2021-12-17] MEDS: ACETAMINOPHEN 500 MG TAB PO PRN (22:03)
[2021-12-18] MEDS: METRONIDAZOLE 500mg IVPB 500 MG/100 ML BAG IV SCH ×2 (04:20→10:00)
[2021-12-18] MEDS: ACETAMINOPHEN 500 MG TAB PO PRN ×2 (04:27→10:12)
[2021-12-18 05:39] LABS: Absolute Lymphocytes (CBC) 2.7 K/uL (0.7-4.9); Hematocrit 33.5 % (36.0-45.0); Lymphocytes % 34.8 % (15.3-44.8); MCV 90.5 fL (80-100); MPV 8.4 fL (7.6-11.3); RBC Red Blood Cell Count 3.69 M/uL (3.86-4.86)
[2021-12-18 06:01] LABS: Albumin 3.2 g/dL (3.4-5.0); Bilirubin Total 0.4 mg/dL (0.2-1.0); Protein, Total 6.5 g/dL (6.4-8.2)
[2021-12-18 06:02] LABS: Potassium 3.9 mmol/L (3.5-5.1)
[2021-12-18] MEDS: NA CHLORIDE 0.9% 1,000 ML IV SCH (08:02)
[2021-12-18] MEDS: CEFTRIAXONE 1,000 MG in NA CHLORIDE 0.9% 50 ML IVPB SCH (09:02)
[2021-12-18 12:04] VITALS: BP 107/74; TEMP 97.3
== END 2021-12-18 14:29 | disposition home or self-care (01) | DRG 690 ==
LOC: ER 13:36 → ERHOLD 17:56 → OBSVTOIN 20:21 → 2ND-WC 20:23
PROVIDERS: ADMIT Hospitalist; ATTEND Hospitalist
DX: N10 Acute pyelonephritis (principal); A59.9 Trichomoniasis, unspecified; Z20.822 Contact with and (suspected) exposure to COVID-19
CPT/HCPCS: 36415; 74176; 76377; 80053; 81003; 81015; 83605; 85025; 85610; 85730; 87040; 87086; 87088; 96365; 96366; 96375; 99284; G0378; J2270; J2405; J3010; J3490; J7030; U0003

== ENCOUNTER 2022-01-01 13:00 | Emergency (ER) | payer SELFPAY ==
[2022-01-01 13:20] LABS: Urine Blood 3+ (Negative); Urine Glucose Negative (Negative); Urine Protein Negative (Negative); Urine Specific Gravity 1.025 (1.005-1.030)
[2022-01-01 13:29] LABS: Urine Bacteria None Seen /HPF (<20); Urine Mucus 1+ /HPF (None Seen); Urine RBC >50 /HPF (None Seen)
[2022-01-01 13:48] LABS: Absolute Lymphocytes (CBC) 1.8 K/uL (0.7-4.9); Hematocrit 35.3 % (36.0-45.0); Lymphocytes % 30.1 % (15.3-44.8); MCV 89.3 fL (80-100); MPV 7.4 fL (7.6-11.3); RBC Red Blood Cell Count 3.95 M/uL (3.86-4.86)
[2022-01-01] MEDS ORDERED: NA CHLORIDE 0.9% 1,000 ML ONE (13:49)
[2022-01-01 13:58] LABS: Urine Specific Gravity/Preg 1.025 (1.005-1.030)
--- NOTE | 2022-01-01 14:41 | RAD REPORT ---
EXAM DESCRIPTION: CTAbdomen Pelvis W Contrast - 01/01/2022 2:25 pm CLINICAL HISTORY: r/o pyelonephritis COMPARISON: No comparisons TECHNIQUE: CT of the abdomen and pelvis was performed with contrast. All CT scans are performed using dose optimization technique as appropriate and may include automated exposure control or mA/KV adjustment according to patient size. FINDINGS: Lower chest: No acute abnormality. Liver: No acute abnormality or suspicious lesions. Biliary: No biliary ductal dilatation. Stomach: No significant focal abnormality. Duodenum: No significant focal abnormality. Pancreas: No significant abnormality. Spleen: No significant abnormality. Adrenal: No suspicious lesions. Kidney/ureter: No hydronephrosis. No renal calculi. Small left renal cysts. Retroperitoneum: No retroperitoneal adenopathy. Vascular: No aneurysm. Bowel: Moderate stool in the colon.. Normal appendix. Peritoneum: No ascites or free air. Bladder: Grossly unremarkable. Reproductive: No adnexal masses. Bones: No acute fracture. Other: n/a IMPRESSION: No acute intra-abdominal or pelvic finding. Normal appendix. No CT findings to suggest p yelonephritis. No hydronephrosis.
[2022-01-01 14:50] LABS: Albumin 3.4 g/dL (3.4-5.0); Bilirubin Total 0.6 mg/dL (0.2-1.0); Protein, Total 6.9 g/dL (6.4-8.2)
[2022-01-01 14:51] LABS: Potassium 3.8 mmol/L (3.5-5.1)
--- NOTE | 2022-01-01 15:27 | EDPHYS ---
Physician Documentation 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 - Social history:: Smoking status: Patient reports the use of cigarette tobacco products, smokes one-half pack cigarettes per day. Vital Signs: 13:07 BP 128 / 82; Pulse 126; Resp 16; Temp 99.2; Pulse Ox 100% ; Weight 54.43 kg; Height 5 ll1 ft. 0 in. (152.40 cm); 13:07 Body Mass Index 23.44 (54.43 kg, 152.40 cm) ll1 MDM: 13:04 Patient medically screened. kb 01/01 13:11 Order name: CBC with Diff; Complete Time: 14:07 kb 01/01 13:11 Order name: CMP; Complete Time: 14:56 kb 01/01 13:11 Order name: Lipase; Complete Time: 14:56 kb 01/01 13:11 Order name: Urine Microscopic Only; Complete Time: 13:30 kb 01/01 13:20 Order name: Urine Dipstick-Ancillary; Complete Time: 13:28 EDMS 01/01 13:30 Order name: Urine --Ancillary (enter results); Complete Time: 14:07 eb 01/01 13:11 Order name: CT Abd/Pelvis - IV Contrast Only; Complete Time: 14:43 kb 01/01 13:11 Order name: IV Saline Lock; Complete Time: 13:38 kb 01/01 13:11 Order name: Labs collected and sent; Complete Time: 13:38 kb 01/01 13:11 Order name: Urine Dipstick-Ancillary (obtain specimen); Complete Time: 13:19 kb 01/01 13:11 Order name: Urine Test (obtain specimen); Complete Time: 13:19 kb 01/01 13:51 Order name: Labs - recollect needed: recollect chemistry/ hemolyzed; Complete Time: eb 14:52 Administered Medications: 14:00 Drug: NS 0.9% 1000 ml Route: IV; Rate: 1 bolus; Site: left antecubital; em6 Disposition Summary: 01/01/22 15:27 Discharge Ordered Location: Home kb Condition: Stable kb Diagnosis - Abdominal pain, unspecified - LUQ kb Followup: kb - With: Emergency Department - When: As needed - Reason: Worsening of condition Followup: kb - With: Private Physician - When: 2 - 3 days - Reason: Recheck today's complaints, Continuance of care, Re-evaluation by your physician Discharge Instructions: - Discharge Summary Sheet kb - Abdominal Pain, Adult, Pyax-xd-Weno kb Forms: - Medication Reconciliation Form kb - Thank You Letter kb - Antibiotic Education kb - Prescription Opioid Use kb Prescriptions: - Diclofenac Sodium 75 mg Oral tablet,delayed release (DR/EC) - take 1 tablet by ORAL route 2 times per day As needed; 30 tablet; Refills: 0, kb Product Selection Permitted Signatures: Dispatcher [employer] EDMS Yenni Cabezas, STEAM CONDITIONER OPERATOR-C STEAM CONDITIONER OPERATOR-Asha Marie Lynsay RN RN ll1 Edie Bhandari RN RN em6 Corrections: (The following items were deleted from the chart) 13:10 13:07 Social history: Smoking status: Patient denies any tobacco usage or history of. ll1 ll1
--- NOTE | 2022-01-01 15:27 | ER ---
Nurse's Notes [facility] Name: Christine Dong Age: 36 yrs Sex: Female : 1985 Arrival Date: 01/01/2022 Time: 13:02 Bed 14 Private MD: Diagnosis: Abdominal pain, unspecified-LUQ Presentation: 01/01 13:07 Chief complaint: Patient states: Finished antibiotics for kidney infection 3 days ago. ll1 LUQ still hurting. No fever. Coronavirus screen: Client denies travel out of the [place] in the last 14 days. At this time, the client does not indicate any symptoms associated with coronavirus-19. Ebola Screen: Patient denies travel to an Ebola-affected area in the 21 days before illness onset. Initial Sepsis Screen: Does the patient meet any 2 criteria? No. Patient's initial sepsis screen is negative. Does the patient have a suspected source of infection? Yes: Acute abdominal pain. Risk Assessment: Do you want to hurt yourself or someone else? Patient reports no desire to harm self or others. Onset of symptoms was December 12, 2021. 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 - Social history:: Smoking status: Patient reports the use of cigarette tobacco products, smokes one-half pack cigarettes per day. Screenin:20 Abuse screen: Denies threats or abuse. Nutritional screening: No deficits noted. em6 Tuberculosis screening: No symptoms or risk factors identified. Fall Risk None identified. No fall in past 12 months (0 pts). No secondary diagnosis (0 pts). IV access (20 points). Ambulatory Aid- None/Bed Rest/Nurse Assist (0 pts). Gait- Normal/Bed Rest/Wheelchair (0 pts) Mental Status- Oriented to own ability (0 pts). Total Viveros Fall Scale indicates No Risk (0-24 pts). Assessment: 13:20 General: Appears in no apparent distress. comfortable, Behavior is calm, cooperative. em6 Pain: Complains of pain in posterior aspect of left lateral abdomen and anterior aspect of left lateral abdomen Pain does not radiate. Pain currently is 6 out of 10 on a pain scale. Quality of pain is described as crampy, sharp. Neuro: Obone Agitation-Sedation Scale (RASS): 0 - Alert and Calm Level of Consciousness is awake, alert, obeys commands, Oriented to person, place, time, situation, Reports headache frontal area, Denies blurred vision dizziness. Cardiovascular: Heart tones present Capillary refill < 3 seconds Chest pain is denied. Respiratory: Airway is patent Respiratory effort is even, unlabored, Respiratory pattern is regular, symmetrical, Breath sounds are clear bilaterally. GI: No signs and/or symptoms were reported involving the gastrointestinal system. : No signs and/or symptoms were reported regarding the genitourinary system. Denies burning with urination, urinary frequency, vaginal bleeding. EENT: No signs and/or symptoms were reported regarding the EENT system. Derm: No signs and/or symptoms reported regarding the dermatologic system. Musculoskeletal: No signs and/or symptoms reported regarding the musculoskeletal system. Vital Signs: 13:07 BP 128 / 82; Pulse 126; Resp 16; Temp 99.2; Pulse Ox 100% ; Weight 54.43 kg; Height 5 ll1 ft. 0 in. (152.40 cm); 13:07 Body Mass Index 23.44 (54.43 kg, 152.40 cm) ll1 ED Course: 13:02 Patient arrived in ED. mr 13:02 Yenn[facility]abezas [facility]-C [facility] kb 13:02 Joann Lua MD is Attending Physician. kb 13:07 Arm band placed on. ll1 13:09 Triage completed. ll1 13:20 Patient has correct armband on for positive identification. Bed in low position. Call em6 light in reach. Side rails up X 1. Pulse ox on. NIBP on. 13:20 Urine Microscopic Only Sent. mb7 13:23 Misael Thomas, AUBREE is Primary Nurse. jd3 14:27 CT Abd/Pelvis - IV Contrast Only In Process Unspecified. EDMS 14:58 Inserted saline lock: 22 gauge in right antecubital area, using aseptic technique. left em6 AC 20 G discontinued. dry and intact pressure dressing applied. patient has a 22G in the right AC at the moment. 15:46 No provider procedures requiring assistance completed. hb Administered Medications: 14:00 Drug: NS 0.9% 1000 ml Route: IV; Rate: 1 bolus; Site: left antecubital; em6 Medication: 14:22 VIS not applicable for this client. em6 Outcome: 15:27 Discharge ordered by . blake 15:46 Discharged to home ambulatory. hb 15:46 Condition: stable 15:46 Discharge instructions given to patient, Instructed on discharge instructions, follow up and referral plans. medication usage, Demonstrated understanding of instructions, follow-up care, medications, Prescriptions given X 1. 15:47 Patient left the ED. Signatures: Dispatcher [employer] EDMS Yenni Cabezas, [employer] SYSTEM ADMIN-Dina Arredondo Katharine Mcneal, RN RN Misael Thomas RN RN Gretta Dickerson RN RN ll1 Dina Tavarez [facility] Edie Bhandari RN RN em6 Corrections: (The following items were deleted from the chart) 13:10 13:07 Social history: Smoking status: Patient denies any tobacco usage or history of. ll1 ll1
[2022-01-01 16:10] VITALS: BP 128/82; TEMP 99.2; O2SAT 100
== END 2022-01-01 15:47 | disposition home or self-care (01) ==
LOC: ER 13:00
DX: R10.12 Left upper quadrant pain (principal); F17.210 Nicotine dependence, cigarettes, uncomplicated; I10 Essential (primary) hypertension; Z88.8 Allergy status to other drugs, medicaments and biological substances
CPT/HCPCS: 36415; 74177; 80053; 81003; 81015; 81025; 83690; 85025; 99284; J7030; Q9967

== ENCOUNTER 2022-02-10 19:51 | Emergency (ER) | payer SELFPAY ==
--- OUTSIDE RECORDS SUMMARY | 2022-02-10 19:55 | XMS REPORT | Continuity of Care Document ---
:1985 Author Organization [facility] t Address [address] [place] [address] Care Team Providers Name Role Phone Asked, No Pcp Primary Care Physician Unavailable Problems Condition [...] Comments Source History of tobacco Cigarette Smoker [facility] use [facility] Cigarettes smoked 2017-10-10 2017-10-[address] current (pack per 00:00:00 00:00:00 Hospita l day) - Reported Alcohol intake 2017-10-10 2017-10-10 Current drinker [facility] 00:00:00 00:00:00 of alcohol Hospital (finding) Tobacco use and 2017-10-10 2017-10-10 Never used [facility] exposure 00:00:00 00:00:00 Hospital Sex Assigned At [birth year] [facility] 00:00:00 00:00:00 Hospital Smoking Status Start Date Stop Date Source Current every day smoker 2017-10-10 00:00:[address] [facility] Medications This patient has no known medications. Procedures This patient has no known procedures. Results This patient has no known results.
[2022-02-10 21:07] LABS: Urine Blood 2+ (Negative); Urine Glucose Negative (Negative); Urine Protein Negative (Negative); Urine pH 6.5 (5.0-7.0)
[2022-02-10 22:18] LABS: Urine Bacteria <20 /HPF (<20); Urine Mucus Slight /HPF (None Seen)
--- NOTE | 2022-02-10 22:26 | RAD REPORT ---
EXAM DESCRIPTION: CT - Stone Protocol - 02/10/2022 10:15 pm CLINICAL HISTORY: Abdominal pain. Left flank pain COMPARISON: December 2021 TECHNIQUE: Computed axial tomography of the abdomen pelvis was obtained without oral or IV contrast. Lack of IV and oral contrast limits evaluation of solid organs, appendix, bowel, and vessels. Wright l reformatted images were obtained and reviewed. All CT scans are performed using dose optimization technique as appropriate and may include automated exposure control or mA/KV adjustment according to patient size. FINDINGS: A renal calculus is not seen. An ureteral calculus is not noted. A bladder calculus is not present. The liver, spleen, pancreas and adrenals appear grossly normal There is no evidence of diverticulitis. The appendix appears normal A 2.7 centimeter right ovarian cyst without significant free fluid Stomach is mildly distended IMPRESSION: Negative for a genitourinary calculus A 2.7 centimeter right ovarian cyst without significant free fluid Mild gastric distention
--- NOTE | 2022-02-10 23:07 | ER ---
Nurse's Notes [facility] Name: Christine Dong Age: 36 yrs Sex: Female : 1985 Arrival Date: 02/10/2022 Time: 19:54 Bed 18 Private MD: Diagnosis: Other and unspecified ovarian cysts;Gas pain;Dysuria Presentation: 02/10 20:27 Chief complaint: Patient states: I have been having pain in my left side and I took a [facility] home UTI test and it was positive. Coronavirus screen: At this time, the client does not indicate any symptoms associated with coronavirus-19. Ebola Screen: No symptoms or risks identified at this time. Initial Sepsis Screen: Does the patient meet any 2 criteria? No. Patient's initial sepsis screen is negative. Does the patient have a suspected source of infection? Yes: Dysuria/Frequency/Urgency/UTI. Risk Assessment: Do you want to hurt yourself or someone else? Patient reports no desire to harm self or others. Onset of symptoms is unknown. 20:27 Method Of Arrival: Ambulatory [facility] 20:27 Acuity: ROSELIA 3 bm7 Triage Assessment: 20:28 General: Appears in no apparent distress. uncomfortable, well groomed, well developed, 7 Behavior is calm, cooperative, appropriate for age. Pain: Complains of pain in left low back Pain does not radiate. EENT: No deficits noted. No signs and/or symptoms were reported regarding the EENT system. Neuro: No deficits noted. Cardiovascular: No deficits noted. Respiratory: No deficits noted. GI: Abdomen is flat, non-distended, Bowel sounds present X 4 quads. Reports nausea. : Reports cramping, in left lower back Denies burning with urination, urinary frequency, vaginal bleeding. Derm: No deficits noted. No signs and/or symptoms reported regarding the dermatologic system. Musculoskeletal: No deficits noted. No signs and/or symptoms reported regarding the musculoskeletal system. 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 - Social history:: Smoking status: Patient reports the use of cigarette tobacco products, denies chronic smoking, but will smoke occasionally, Patient uses street drugs, marijuana. Screenin:35 Abuse screen: Denies threats or abuse. Nutritional screening: No deficits noted. bm7 Tuberculosis screening: No symptoms or risk factors identified. Fall Risk None identified. Assessment: 22:45 General: SEE TRIAGE ASSESSMENT. hb 22:51 Reassessment: Patient appears in no apparent distress at this time. Patient and/or hb family updated on plan of care and expected duration. Pain level reassessed. Patient is alert, oriented x 3, equal unlabored respirations, skin warm/dry/pink. Vital Signs: 20:26 BP 131 / 79; Pulse 91; Resp 16; Temp 98.9(TE); Pulse Ox 100% on R/A; Weight 54.43 kg bm7 (R); Height 5 ft. 0 in. (152.40 cm); Pain 6/10; 22:52 BP 111 / 71; Pulse 87; Resp 15; Pulse Ox 100% on R/A; Pain 2/10; hb 20:26 Body Mass Index 23.44 (54.43 kg, 152.40 cm) bm7 ED Course: 19:54 Patient arrived in ED. ja2 20:14 Sabrina Meyers FNP-C is PHCP. snw 20:14 Chad Black MD is Attending Physician. snw 20:26 Arm band placed on left wrist. bm7 20:28 Triage completed. bm7 20:35 Patient has correct armband on for positive identification. Adult w/ patient. bm7 20:35 No provider procedures requiring assistance completed. Patient did not have IV access bm7 during this emergency room visit. 22:17 CT Stone Protocol In Process Unspecified. EDMS 22:42 Katharine Mcneal, RN is Primary Nurse. hb Administered Medications: No medications were administered Medication: 20:35 VIS not applicable for this client. bm7 Outcome: 23:06 Discharge ordered by . snw 23:21 Discharged to home ambulatory. hb 23:21 Condition: stable 23:21 Discharge instructions given to patient, Instructed on discharge instructions, follow up and referral plans. medication usage, Demonstrated understanding of instructions, follow-up care, medications, Prescriptions given X 2. 23:21 Patient left the ED. Signatures: Dispatcher [employer] EDMS Sabrina Meyers FNP-C [employer] Katharine Mcneal RN RN Kathie Herrera RN RN [facility] Milla Mason Corrections: (The following items were deleted from the chart) 20:36 20:35 Reassessment: No changes from previously documented assessment. Patient and/or bm7 family updated on plan of care and expected duration. Pain level reassessed. Patient is alert/active/playful, equal unlabored respirations, skin warm/dry/pink. 7 20:36 20:35 Discharged to home ambulatory, with family, [place] [id number] 20:36 20:35 Condition: good [place] [id number] 20:36 20:35 Discharge instructions given to patient, family, Instructed on discharge [facility] instructions, follow up and referral plans. medication usage, Demonstrated understanding of instructions, follow-up care, medications, Prescriptions given X 2, 7
--- NOTE | 2022-02-10 23:07 | EDPHYS ---
Physician Documentation [facility] Name: Christine Dong Age: 36 yrs Sex: Female : 1985 Arrival Date: 02/10/2022 Time: 19:54 Bed 18 Private MD: MARIBEL Physician Chad Black HPI: 02/10 23:12 This 36 yrs old Female presents to ER via Ambulatory with complaints of Urinary Problem.snw 23:12 The patient complains of pain in the mid back area. snw 23:13 The pain radiates to the mid back area. Onset: The symptoms/episode began/occurred snw gradually, 2 day(s) ago, and became persistent. Associated signs and symptoms: Pertinent positives: dysuria, hematuria. Severity of pain: At its worst the pain was moderate. The patient has experienced similar episodes in the past, multiple times, today's symptoms are similar, to previous UTI. The patient has not recently seen a physician. 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 - Social history:: Smoking status: Patient reports the use of cigarette tobacco products, denies chronic smoking, but will smoke occasionally, Patient uses street drugs, marijuana. ROS: 23:11 Constitutional: Negative for fever, chills, and weight loss, Eyes: Negative for injury, snw pain, redness, and discharge, ENT: Negative for injury, pain, and discharge, Neck: Negative for injury, pain, and swelling, Cardiovascular: Negative for chest pain, palpitations, and edema, Respiratory: Negative for shortness of breath, cough, wheezing, and pleuritic chest pain, MS/Extremity: Negative for injury and deformity, Skin: Negative for injury, rash, and discoloration, Neuro: Negative for headache, weakness, numbness, tingling, and seizure, Psych: Negative for depression, anxiety, suicide ideation, homicidal ideation, and hallucinations. 23:11 Abdomen/GI: Positive for abdominal pain. 23:11 Back: Positive for flank pain, on the left. 23:11 : Positive for urinary symptoms, frequent UTIs, bladder prolapse hx. Exam: 23:10 Constitutional: This is a well developed, well nourished patient who is awake, alert, snw and in no acute distress. Head/Face: Normocephalic, atraumatic. Eyes: Pupils equal round and reactive to light, extra-ocular motions intact. Lids and lashes normal. Conjunctiva and sclera are non-icteric and not injected. Cornea within normal limits. Periorbital areas with no swelling, redness, or edema. ENT: Nares patent. No nasal discharge, no septal abnormalities noted. Tympanic membranes are normal and external auditory canals are clear. Oropharynx with no redness, swelling, or masses, exudates, or evidence of obstruction, uvula midline. Mucous membranes moist. Neck: Trachea midline, no thyromegaly or masses palpated, and no cervical lymphadenopathy. Supple, full range of motion without nuchal rigidity, or vertebral point tenderness. No Meningismus. Chest/axilla: Normal chest wall appearance and motion. Nontender with no deformity. No lesions are appreciated. Cardiovascular: Regular rate and rhythm with a normal S1 and S2. No gallops, murmurs, or rubs. Normal PMI, no JVD. No pulse deficits. Respiratory: Lungs have equal breath sounds bilaterally, clear to auscultation and percussion. No rales, rhonchi or wheezes noted. No increased work of breathing, no retractions or nasal flaring. Back: No spinal tenderness. No costovertebral tenderness. Full range of motion. Skin: Warm, dry with normal turgor. Normal color with no rashes, no lesions, and no evidence of cellulitis. MS/ Extremity: Pulses equal, no cyanosis. Neurovascular intact. Full, normal range of motion. Neuro: Awake and alert, GCS 15, oriented to person, place, time, and situation. Cranial nerves II-XII grossly intact. Motor strength 5/5 in all extremities. Sensory grossly intact. Cerebellar exam normal. Normal gait. Psych: Awake, alert, with orientation to person, place and time. Behavior, mood, and affect are within normal limits. 23:10 Abdomen/GI: Inspection: abdomen appears normal, Bowel sounds: normal, Palpation: moderate abdominal tenderness, in the left upper quadrant and left lower quadrant. Vital Signs: 20:26 BP 131 / 79; Pulse 91; Resp 16; Temp 98.9(TE); Pulse Ox 100% on R/A; Weight 54.43 kg bm7 (R); Height 5 ft. 0 in. (152.40 cm); Pain 6/10; 22:52 BP 111 / 71; Pulse 87; Resp 15; Pulse Ox 100% on R/A; Pain 2/10; hb 20:26 Body Mass Index 23.44 (54.43 kg, 152.40 cm) bm7 MDM: 21:10 Patient medically screened. snw 23:04 Data reviewed: vital signs, nurses notes. Data interpreted: Pulse oximetry: on room air snw is 100 %. Interpretation: normal. Counseling: I had a detailed discussion with the patient and/or guardian regarding: the historical points, exam findings, and any diagnostic results supporting the discharge/admit diagnosis, lab results, radiology results, the need for outpatient follow up, for definitive care. Response to treatment: There is no appreciated change of the patient's symptoms at this time. Special discussion: Based on the history and exam findings, there is no indication for further emergent testing or inpatient evaluation. 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 ED course: Pt voices understanding of lab/imaging results. Agrees with proposed plan of care.. 02/10 20:14 Order name: Urine Culture snw 02/10 20:14 Order name: Urine Microscopic Only; Complete Time: 22:20 snw 02/10 20:14 Order name: Urine Dipstick-Ancillary (obtain specimen); Complete Time: 21:15 snw 02/10 21:08 Order name: Urine Dipstick-Ancillary; Complete Time: 21:08 EDMS 02/10 21:11 Order name: CT Stone Protocol; Complete Time: 22:30 snw 02/10 21:16 Order name: Urine --Ancillary (enter results); Complete Time: 21:32 ds4 02/10 20:14 Order name: Urine Test (obtain specimen); Complete Time: 21:15 snw Administered Medications: No medications were administered Disposition: 02/11 00:35 Co-signature as Attending Physician, Chad Black MD. rn Disposition Summary: 02/10/22 23:06 Discharge Ordered Location: Home snw Condition: Stable snw Diagnosis - Other and unspecified ovarian cysts snw - Gas pain snw - Dysuria snw Followup: snw - With: Emergency Department - When: As needed - Reason: Worsening of condition Followup: snw - With: Private Physician - When: 5 - 6 days - Reason: Recheck today's complaints, Continuance of care, Re-evaluation by your physician Discharge Instructions: - Discharge Summary Sheet snw - Abdominal Pain, Adult snw - Dysuria snw - Ovarian Cyst snw - Gas and Gas Pains, Pediatric snw Forms: - Medication Reconciliation Form snw - Thank You Letter snw - Antibiotic Education snw - Prescription Opioid Use snw Prescriptions: - Macrobid 100 mg Oral Capsule - take 1 capsule by ORAL route once daily for 21 days; 21 capsule; Refills: 0, snw Product Selection Permitted - Cyclobenzaprine 10 mg Oral Tablet - take 1 tablet by ORAL route every 8 hours As needed; 30 tablet; Refills: 0, snw Product Selection Permitted Signatures: Dispatcher [employer] EDSabrina Jernigan, ROSIE-C LABORER TANBARK-Csnw Chad Black MD MD rn McCarthy, Brittany RN RN bm7
[2022-02-11 04:14] VITALS: TEMP 98.9; O2SAT 100
[2022-02-11 04:16] VITALS: BP 111/71
== END 2022-02-10 23:21 | disposition home or self-care (01) ==
LOC: ER 19:51
DX: R30.0 Dysuria (principal); R14.1 Gas pain; N83.299 Other ovarian cyst, unspecified side; I10 Essential (primary) hypertension; F17.210 Nicotine dependence, cigarettes, uncomplicated; Z88.8 Allergy status to other drugs, medicaments and biological substances
CPT/HCPCS: 74176; 76377; 81003; 81015; 81025; 87086; 87088; 99283

== ENCOUNTER 2022-03-18 14:59 | Emergency (ER) | payer SELFPAY ==
--- OUTSIDE RECORDS SUMMARY | 2022-03-18 15:02 | XMS REPORT | Continuity of Care Document ---
:1985 Author Organization [facility] t Address [address] [place] [address] Care Team Providers Name Role Phone Asked, [...] Comments Source History of tobacco [facility]igarette [facility] Tobacco use and 2017-10-10 2017-10-10 Smokeless tobacco [facility] exposure 00:00:00 00:00:00 non-user Hospital Cigarettes smoked 2017-10-10 2017-10-10 [facility] current (pack per 00:00:00 00:00:00 Hospita l day) - Reported Alcohol intake 2017-10-10 2017-10-10 Current drinker [facility] 00:00:00 00:00:00 of alcohol Hospital (finding) Sex Assigned At [birth year] [facility] Smoking Status Start Date Stop Date Source Smokes tobacco daily 2017-10-10 00:00:00 [facility] Medications This patient has no known medications. Procedures This patient has no known procedures. Results This patient has no known results.
--- NOTE | 2022-03-18 15:23 | ER ---
Nurse's Notes [facility] Name: Christine Dong Age: 36 yrs Sex: Female : 1985 Arrival Date: 03/18/2022 Time: 15:01 Bed DIS2 Private MD: Diagnosis: Temporomandibular joint disorders;Puncture wound without foreign body of foot-right Presentation: 03/18 15:03 Chief complaint: Right ear pain that radiates to right side of face since last night. hb Coronavirus screen: At this time, the client does not indicate any symptoms associated with coronavirus-19. Ebola Screen: No symptoms or risks identified at this time. Initial Sepsis Screen: Does the patient meet any 2 criteria? No. Patient's initial sepsis screen is negative. Does the patient have a suspected source of infection? No. Patient's initial sepsis screen is negative. Risk Assessment: Do you want to hurt yourself or someone else? Patient reports no desire to harm self or others. Onset of symptoms was March 17, 2022. 15:03 Method Of Arrival: Ambulatory hb 15:03 Acuity: ROSELIA 4 hb Triage Assessment: 15:04 General: Appears in no apparent distress. Behavior is calm, cooperative. Pain: Pain hb currently is 5 out of 10 on a pain scale. EENT: Reports right ear pain. Neuro: Level of Consciousness is awake, alert, obeys commands, Oriented to person, place, time, situation. Cardiovascular: Patient's skin is warm and dry. Respiratory: Respiratory effort is even, unlabored, Respiratory pattern is regular, symmetrical. 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 - Social history:: Smoking status: Patient reports the use of cigarette tobacco products, smokes one-half pack cigarettes per day. Vital Signs: 15:03 BP 119 / 85; Pulse 99; Resp 16; Temp 99.1; Pulse Ox 98% ; Weight 54.43 kg; Height 5 ft. hb (152.40 cm); Pain 5/10; 15:03 Body Mass Index 23.44 (54.43 kg, 152.40 cm) hb ED Course: 15:01 Patient arrived in ED. as 15:02 Trevon Mcpherson PA is PHCP. cp 15:02 Cedrick Jacobs MD is Attending Physician. cp 15:04 Triage completed. hb 15:04 Arm band placed on. 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 Exp: hb 10/08/2023. Lot #: [id number]. } Route: IM; Site: left deltoid; 15:57 Drug: Ibuprofen 600 mg Route: PO; hb Outcome: 15:22 Discharge ordered by MD. cp 15:57 Discharged to home ambulatory. hb 15:57 Condition: stable 15:57 Discharge instructions given to patient, Instructed on discharge instructions, follow up and referral plans. medication usage, Demonstrated understanding of instructions, follow-up care, medications, Prescriptions given X 1. 15:58 Patient left the ED. hb Signatures: Belia Bhandari as Trevon Mcpherson PA PA cp Baxter, Heather, AUBREE RN hb
--- NOTE | 2022-03-18 15:23 | EDPHYS ---
Physician Documentation [facility] Name: Christine Dong Age: 36 yrs Sex: Female : 1985 Arrival Date: 03/18/2022 Time: 15:01 Bed DIS2 Private MD: ED Physician Cedrick Jacobs HPI: 03/18 15:20 This 36 yrs old Female presents to ER via Ambulatory with complaints of Right Ear Pain cp and Right Jaw Pain. 15:20 The patient presents with pain, that is acute. The complaints affect the right ear. cp 15:20 Onset: The symptoms/episode began/occurred last night. Associated signs and symptoms: cp Pertinent negatives: cough, fever, sinus trouble, sore throat, vomiting. Severity of symptoms: in the emergency department the symptoms have improved mildly. 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 - Social history:: Smoking status: Patient reports the use of cigarette tobacco products, smokes one-half pack cigarettes per day. ROS: 15:20 Constitutional: Negative for body aches, chills, fever, poor PO intake. cp 15:20 Eyes: Negative for injury, pain, redness, and discharge. cp 15:20 ENT: Positive for ear pain, Negative for drainage from ear(s), sore throat, difficulty swallowing, difficulty handling secretions. 15:20 Neck: Negative for pain with movement, pain at rest, stiffness. 15:20 Cardiovascular: Negative for chest pain, palpitations. 15:20 Respiratory: Negative for cough, shortness of breath, wheezing. 15:20 Skin: Negative for rash. 15:20 Neuro: Negative for altered mental status, headache, numbness, weakness. 15:20 All other systems are negative. Exam: 15:21 Constitutional: The patient appears in no acute distress, alert, awake, non-toxic, well cp developed, well nourished. 15:21 Head/Face: Normocephalic, atraumatic. cp 15:21 Eyes: Periorbital structures: appear normal, Conjunctiva: normal, no exudate, no injection, Sclera: no appreciated abnormality, Lids and lashes: appear normal, bilaterally. 15:21 ENT: External ear(s): are unremarkable, Ear canal(s): are normal, clear, TM's: dullness, bilaterally, Nose: is normal, Mouth: Lips: moist, Oral mucosa: pink and intact, moist, Posterior pharynx: Airway: no evidence of obstruction, patent, Tonsils: are normal in appearance, swelling, is not appreciated, erythema, is not appreciated, Dental exam: dental caries, that is mild, diffusely, pain, is not appreciated, tenderness and pain right TMJ, pain with movement. 15:21 Neck: ROM/movement: is normal, is supple, without pain, no range of motions limitations, Lymph nodes: no appreciated lymphadenopathy. 15:21 Chest/axilla: Inspection: normal. 15:21 Cardiovascular: Rate: normal, Rhythm: regular. 15:21 Respiratory: the patient does not display signs of respiratory distress, Respirations: normal, no use of accessory muscles, no retractions, labored breathing, is not present. 15:21 Skin: cellulitis, is not appreciated, no rash present. Vital Signs: 15:03 BP 119 / 85; Pulse 99; Resp 16; Temp 99.1; Pulse Ox 98% ; Weight 54.43 kg; Height 5 ft. hb (152.40 cm); Pain 5/10; 15:03 Body Mass Index 23.44 (54.43 kg, 152.40 cm) hb MDM: 15:12 Patient medically screened. cp 15:21 Differential diagnosis: otitis media, otitis externa, ruptured TM, foreign body, acute cp otalgia, cerumen impaction, barotrauma . 15:22 Data reviewed: vital signs, nurses notes. cp 15:22 Counseling: I had a detailed discussion with the patient and/or guardian regarding: the cp historical points, exam findings, and any diagnostic results supporting the discharge/admit diagnosis, to return to the emergency department if symptoms worsen or persist or if there are any questions or concerns that arise at home. 15:22 Response to treatment: the patient's symptoms have mildly improved after treatment. 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 Exp: hb 10/08/2023. Lot #: [id number]. } Route: IM; Site: left deltoid; 15:57 Drug: Ibuprofen 600 mg Route: PO; hb Disposition: 17:43 Co-signature as Attending Physician, Cedrick Jacobs MD I agree with the assessment and kdr plan of care. Disposition Summary: 03/18/22 15:22 Discharge Ordered Location: Home cp Problem: new cp Symptoms: have improved cp Condition: Stable cp Diagnosis - Temporomandibular joint disorders cp - Puncture wound without foreign body of foot - right cp Followup: cp - With: Private Physician - When: 2 - 3 days - Reason: Recheck today's complaints Discharge Instructions: - Discharge Summary Sheet cp - Puncture Wound cp - Temporomandibular Joint Syndrome cp Forms: - Medication Reconciliation Form cp - Thank You Letter cp - Antibiotic Education cp - Prescription Opioid Use cp Prescriptions: - Diclofenac Sodium 75 mg Oral Tablet Sustained Release - take 1 tablet by ORAL route 2 times per day; 30 tablet; Refills: 0, Product cp Selection Permitted Signatures: Cedrick Jacobs MD MD kdr Trevon Mcpherson PA PA cp Katharine cMneal, RN RN hb
[2022-03-18] MEDS ORDERED: IBUPROFEN 200 MG TAB PO ONE (15:52)
[2022-03-18] MEDS ORDERED: TETANUS & DIPHTHERIA TOX,ADULT 0.5 ML VIAL ONE (15:52)
[2022-03-18 16:05] VITALS: BP 119/85; TEMP 99.1; O2SAT 98
== END 2022-03-18 15:58 | disposition home or self-care (01) ==
LOC: ER 14:59
DX: M26.609 Unspecified temporomandibular joint disorder, unspecified side (principal); S91.331A Puncture wound without foreign body, right foot, initial encounter; X58.XXXA Exposure to other specified factors, initial encounter; Y93.9 Activity, unspecified; Y92.9 Unspecified place or not applicable; F17.210 Nicotine dependence, cigarettes, uncomplicated; Z23 Encounter for immunization
CPT/HCPCS: 90471; 90714; 99283

== ENCOUNTER → 2023-06-11 | Emergency (ER) | payer SELFPAY ==
[~2023-06-11] MED LIST: KETOROLAC 30 MG/ML INJ ONE; NA CHLORIDE 0.9% 1,000 ML ONE; ONDANSETRON 4 MG/2 ML VIAL ONE
[2023-06-11 10:39] LABS: Absolute Lymphocytes (CBC) 1.9 K/uL (0.7-4.9); Hematocrit 33.8 % (36.0-45.0); Lymphocytes % 30.3 % (15.3-44.8); MCV 91.1 fL (80-100); MPV 7.5 fL (7.6-11.3); Platelets 290 thou/uL (152-406); RBC Red Blood Cell Count 3.71 M/uL (3.86-4.86)
[2023-06-11 10:41] LABS: Specific Gravity 1.011 (1.005-1.030); Urine Bacteria None Seen /HPF (<20); Urine Bilirubin NEGATIVE (Negative); Urine Blood 1+ (Negative); Urine Clarity Clear (Clear); Urine Color Light-Yellow (Yellow); Urine Glucose NEGATIVE (Negative); Urine Mucus Slight /HPF (None Seen); Urine Protein NEGATIVE (Negative); Urine RBC <5 /HPF (None Seen); Urine Urobilinogen Normal (Normal); Urine pH 5.5 (5.0-7.0)
[2023-06-11 10:55] LABS: Albumin 3.3 g/dL (3.4-5.0); Bilirubin Total 0.3 mg/dL (0.2-1.0); Potassium 4.1 mEq/L (3.5-5.1); Protein, Total 7.2 g/dL (6.4-8.2)
--- NOTE | 2023-06-11 11:12 | RAD REPORT ---
EXAM DESCRIPTION: CTAbdomen Pelvis W Contrast - 06/11/2023 11:02 am CLINICAL HISTORY: Abdominal pain. pyelo vs stone COMPARISON: Abdomen Pelvis W Contrast dated 01/01/2022; Stone Protocol dated 02/10/2022 TECHNIQUE: Biphasic CT imaging of the abdomen and pelvis was performed with 100 ml non-ionic IV cont rast. All CT scans are performed using dose optimization technique as appropriate and may include automated exposure control or mA/KV adjustment according to patient size. FINDINGS: The lung bases are clear. The liver, spleen, pancreas, adrenal glands and kidneys are within normal limits. No bowel obstruction, free air, free fluid or abscess. Prominent stool is present retained throughout the colon. The appendix is normal. No evidence of significant lymphadenopathy. No suspicious bony findings. IMPRESSION: No acute intra-abdominal or pelvic finding. Prominent stool retention throughout the colon.
--- NOTE | 2023-06-11 11:20 | EDPHYS ---
Physician Documentation [facility] Name: Christine Dong Age: 37 yrs Sex: Female : 1985 Arrival Date: 06/11/2023 Time: 09:45 Bed DX5 Private MD: ED Physician Boaz Lujan HPI: 06/11 10:14 This 37 yrs old Female presents to ER via Ambulatory with complaints of flank pain. sb4 10:14 The patient complains of pain in the left low back. The pain radiates to the left lower sb4 quadrant. Onset: The symptoms/episode began/occurred 2 day(s) ago. Modifying factors: The symptoms are alleviated by nothing. the symptoms are aggravated by nothing. Associated signs and symptoms: Pertinent positives: nausea, vomiting, Pertinent negatives: dysuria, fever. The patient has experienced similar episodes in the past, multiple times, today's symptoms are similar. The patient has not recently seen a physician. 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 - Social history:: Smoking status: Patient/guardian denies using. ROS: 10:14 Constitutional: Negative for fever, chills, and weight loss, sb4 10:14 Back: Positive for flank pain, on the left, 10:14 All other systems are negative, Exam: 10:14 Constitutional: This is a well developed, well nourished patient who is awake, alert, sb4 and in no acute distress. Head/Face: Normocephalic, atraumatic. Eyes: Extra-ocular motions intact. Periorbital areas with no swelling, redness, or edema. ENT: Mucous membranes moist. Cardiovascular: Regular rate and rhythm with a normal S1 and S2. Respiratory: Lungs have equal breath sounds bilaterally, clear to auscultation and percussion. No rales, rhonchi or wheezes noted. No increased work of breathing, no retractions or nasal flaring. Abdomen/GI: Soft, non-tender, no distension. Back: No spinal tenderness. No costovertebral tenderness. Full range of motion. Skin: Warm, dry with normal turgor. Normal color with no rashes, no lesions, and no evidence of cellulitis. MS/ Extremity: Pulses equal, no cyanosis. Neurovascular intact. Full, normal range of motion. Neuro: Awake and alert, GCS 15, oriented to person, place, time, and situation. Motor strength 5/5 in all extremities. Sensory grossly intact. Vital Signs: 10:08 BP 115 / 66; Pulse 62; Resp 16; Temp 98.1; Pulse Ox 100% on R/A; Weight 54.43 kg; iw Height 5 ft. 0 in. ; Pain 4/10; 10:08 Body Mass Index 23.44 (54.43 kg, 152.4 cm) iw 10:08 Pain Scale: Adult iw MDM: 10:06 Patient medically screened. sb4 10:14 Differential diagnosis: nephrolithiasis, pyelonephritis, UTI. sb4 11:17 Data reviewed: vital signs, nurses notes, lab test result(s), radiologic studies, and sb4 as a result, I will discharge patient. Counseling: I had a detailed discussion with the patient and/or guardian regarding the historical points, exam findings, and any diagnostic results supporting the discharge/admit diagnosis, lab results, radiology results, to return to the emergency department if symptoms worsen or persist or if there are any questions or concerns that arise at home. 06/11 10:13 Order name: CBC with Diff; Complete Time: 10:53 sb4 06/11 10:13 Order name: CMP; Complete Time: 10:56 sb4 06/11 10:13 Order name: Test, Urine; Complete Time: 10:53 sb4 06/11 10:13 Order name: Urinalysis w/ reflexes; Complete Time: 10:53 sb4 06/11 10:13 Order name: CT Abd/Pelvis - IV Contrast Only; Complete Time: 11:17 sb4 06/11 10:13 Order name: IV Saline Lock; Complete Time: 10:17 sb4 06/11 10:13 Order name: Labs collected and sent; Complete Time: 10:17 sb4 Administered Medications: 10:37 Drug: NS 0.9% IV 1000 ml IV at 1 bolus Per protocol; 1000 mL bolus Route: IV; Rate: 1 bp bolus; Site: right antecubital; 10:37 Drug: TORadol - Ketorolac IVP 15 mg IVP once Route: IVP; Site: right antecubital; bp 10:37 Drug: Ondansetron IVP 4 mg IVP once; over 2 minutes Route: IVP; Site: right antecubital;bp Disposition: 18:39 I was immediately available on-site in the Emergency Department for consultation in the ms3 care of the patient. Disposition Summary: 06/11/23 11:19 Discharge Ordered Notes: Location: Home sb4 Problem: new sb4 Symptoms: are unchanged sb4 Condition: Stable sb4 Diagnosis - Constipation sb4 Followup: sb4 - With: Emergency Department - When: As needed - Reason: Trouble breathing, Worsening of condition Discharge Instructions: - Discharge Summary Sheet sb4 - Constipation, Adult, [id number] sb4 Forms: - Medication Reconciliation Form sb4 - Thank You Letter sb4 - Antibiotic Education sb4 - Prescription Opioid Use sb4 - Patient Portal Instructions sb4 - Leadership Thank You Letter sb4 Prescriptions: - Colace 100 mg Oral Tablet - take 1 tablet ORAL route every 12 hours; 14 tablet; Refills: 0, Product sb4 Selection Permitted Signatures: Dispatcher [employer] Patsy Rocha, RN RN Madi Telles, AUBREE RN Boaz Raphael DO DO ms3 Kylah Love PA-C PA-C sb4
--- NOTE | 2023-06-11 11:20 | ER ---
Nurse's Notes [facility] Name: Christine Dong Age: 37 yrs Sex: Female : 1985 Arrival Date: 06/11/2023 Time: 09:45 Bed DX5 Private MD: Diagnosis: Constipation Presentation: 06/11 10:08 Chief complaint: Patient states: got a pain in left side this morning, my back was iw hurting for the past week, I think I have a UTI, denies urinary symptoms. Coronavirus screen: At this time, the client does not indicate any symptoms associated with coronavirus-19. Ebola Screen: Patient negative for fever greater than or equal to 101.5 degrees Fahrenheit, and additional compatible Ebola Virus Disease symptoms Patient denies exposure to infectious person. Patient denies travel to an Ebola-affected area in the 21 days before illness onset. No symptoms or risks identified at this time. Initial Sepsis Screen: Does the patient meet any 2 criteria? No. Patient's initial sepsis screen is negative. Does the patient have a suspected source of infection? No. Patient's initial sepsis screen is negative. Risk Assessment: Do you want to hurt yourself or someone else? Patient reports no desire to harm self or others. Onset of symptoms was June 04, 2022. 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 - Social history:: Smoking status: Patient/guardian denies using. Vital Signs: 10:08 BP 115 / 66; Pulse 62; Resp 16; Temp 98.1; Pulse Ox 100% on R/A; Weight 54.43 kg; iw Height 5 ft. 0 in. ; Pain 4/10; 10:08 Body Mass Index 23.44 (54.43 kg, 152.4 cm) iw 10:08 Pain Scale: Adult iw ED Course: 09:45 Patient arrived in ED. rg4 09:55 [facility] Love [facility]-C [facility] sb4 09:55 Boaz Lujan DO is Attending Physician. sb4 10:09 Triage completed. iw 10:10 Arm band placed on. iw 10:31 Madi Bryan, RN is Primary Nurse. bp 11:03 CT Abd/Pelvis - IV Contrast Only In Process Unspecified. EDMS Administered Medications: 10:37 Drug: NS 0.9% IV 1000 ml IV at 1 bolus Per protocol; 1000 mL bolus Route: IV; Rate: 1 bp bolus; Site: right antecubital; 10:37 Drug: TORadol - Ketorolac IVP 15 mg IVP once Route: IVP; Site: right antecubital; bp 10:37 Drug: Ondansetron IVP 4 mg IVP once; over 2 minutes Route: IVP; Site: right antecubital;bp Outcome: 11:19 Discharge ordered by MD. sb4 12:14 Patient left the ED. iw Signatures: Dispatcher [employer] EDMS Patsy Larkin RN RN iw Garcia, Rubi rg4 Madi Bryan, AUBREE RN Kylah Joseph PA-C PA-C sb4
[2023-06-11 12:40] VITALS: BP 115/66; TEMP 98.1; O2SAT 100
== END ==
LOC: ER 09:45
DX: K59.00 Constipation, unspecified (principal)
CPT/HCPCS: 36415; 74177; 80053; 81001; 81025; 85025; 96374; 96375; 99283; J2405; J7030; Q9967

== ENCOUNTER → 2023-06-29 | Emergency (ER) | payer SELFPAY ==
[~2023-06-29] MED LIST changes: +FAMOTIDINE 20 MG/2 ML VIAL IV ONE; +LORazepam 2 MG/ML VIAL ONE; +METOCLOPRAMIDE 10 MG/2mL INJ ONE; +POTASSIUM 25 MEQ EFFERV TAB ONE
[2023-06-29 19:47] LABS: Absolute Lymphocytes (CBC) 0.5 K/uL (0.7-4.9); Hematocrit 34.4 % (36.0-45.0); Lymphocytes % 5.6 % (15.3-44.8); MPV 7.6 fL (7.6-11.3); Platelets 267 thou/uL (152-406); RBC Red Blood Cell Count 3.86 M/uL (3.86-4.86)
[2023-06-29 19:49] LABS: Specific Gravity 1.013 (1.005-1.030)
[2023-06-29 19:53] LABS: Specific Gravity 1.013 (1.005-1.030); Urine Bacteria None Seen /HPF (<20); Urine Bilirubin NEGATIVE (Negative); Urine Blood 3+ (OVER) (Negative); Urine Clarity Turbid (Clear); Urine Color Light-Yellow (Yellow); Urine Glucose NEGATIVE (Negative); Urine Mucus Slight /HPF (None Seen); Urine Protein NEGATIVE (Negative); Urine RBC 21-50 /HPF (None Seen); Urine Urobilinogen Normal (Normal); Urine pH 6.5 (5.0-7.0)
[2023-06-29 19:53] LABS: Protime INR 1.27
[2023-06-29 19:59] LABS: Barbiturates NEGATIVE (NEGATIVE); Benzodiazepines POSITIVE (NEGATIVE); Cocaine NEGATIVE (NEGATIVE); METHAMPHETAM NEGATIVE (NEGATIVE); Methadone NEGATIVE (NEGATIVE); Opiates NEGATIVE (NEGATIVE); Phencyclidine NEGATIVE (NEGATIVE); THC Cannibis POSITIVE (NEGATIVE)
[2023-06-29 20:06] LABS: ALT/SGPT 18 U/L (13-56); AST/SGOT 11 U/L (15-37); Albumin 3.6 g/dL (3.4-5.0); Alkaline Phosphatase 66 U/L (45-117); BUN Blood Urea Nitrogen 9 mg/dL (7-18); Bicarbonate 25 mEq/L (21-32); Bilirubin Direct 0.2 mg/dL (0-0.2); Bilirubin Indirect, Calculated 0.3 mg/dL (0.2-0.8); Bilirubin Total 0.5 mg/dL (0.2-1.0); Glomerular Filtration Rate 102 ml/min (=/>90); Glucose Level 111 mg/dL (74-106); Potassium 2.9 mEq/L (3.5-5.1); Protein, Total 8.2 g/dL (6.4-8.2); Sodium Level 135 mEq/L (136-145); Troponin High Sensitivity 3.1 pg/mL (<58.9)
--- NOTE | 2023-06-29 21:30 | RAD REPORT ---
EXAM DESCRIPTION: CTAbdomen Pelvis W Contrast - 06/29/2023 9:22 pm CLINICAL HISTORY: Abdominal pain. low back pain COMPARISON: Abdomen Pelvis W Contrast dated 06/11/2023; Abdomen Pelvis W Contrast dated 01/01/2022 TECHNIQUE: Biphasic CT imaging of the abdomen and pelvis was performed with 100 ml non-ionic IV cont rast. All CT scans are performed using dose optimization technique as appropriate and may include automated exposure control or mA/KV adjustment according to patient size. FINDINGS: The lung bases are clear. The liver, spleen, pancreas, adrenal glands and kidneys are within normal limits. No bowel obstruction, free air, free fluid or abscess. The appendix is normal. No evidence of signi ficant lymphadenopathy. No suspicious bony findings. IMPRESSION: No acute intra-abdominal or pelvic finding.
--- NOTE | 2023-06-29 22:48 | EDPHYS ---
Physician Documentation [facility] Name: Christine Dong Age: 37 yrs Sex: Female : 1985 Arrival Date: 06/29/2023 Time: 18:16 Bed IW9 Private MD: ED Physician Todd Jackson HPI: 06/29 19:15 This 37 yrs old Female presents to ER via Ambulatory with complaints of Flu Symptoms, cp Detox. 19:15 Patient is a 37-year-old female who presents to the emergency department with reports cp of bodyaches, back pain, headache, fevers and nausea. Patient reports she has been taking a friend's Suboxone and recently ran out and so she feels like she is going through withdrawals but also reports close exposure to strep and flu in her household. She denies any chest pain . 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 - Social history:: Smoking status: Patient reports the use of cigarette tobacco products. ROS: 19:20 Constitutional: Positive for body aches, fever, poor PO intake, cp 19:20 Eyes: Negative for injury, pain, redness, and discharge, cp 19:20 ENT: Positive for sore throat, Negative for drainage from ear(s), ear pain, difficulty swallowing, difficulty handling secretions, 19:20 Neck: Negative for stiffness, tenderness, 19:20 Respiratory: Negative for shortness of breath, wheezing, 19:20 Abdomen/GI: Positive for nausea and vomiting, 19:20 Back: Positive for pain at rest, pain with movement, 19:20 : Negative for urinary symptoms, 19:20 Neuro: Positive for headache, Negative for altered mental status, 19:20 All other systems are negative, Exam: 19:25 Constitutional: The patient appears in no acute distress, alert, awake, non-toxic, well cp developed, well nourished, uncomfortable, 19:25 Head/Face: Normocephalic, atraumatic. cp 19:25 Eyes: Periorbital structures: appear normal, Conjunctiva: normal, no exudate, no injection, Sclera: no appreciated abnormality, Lids and lashes: appear normal, bilaterally, 19:25 ENT: External ear(s): are unremarkable, Nose: is normal, Mouth: Lips: moist, Oral mucosa: moist, Posterior pharynx: Airway: no evidence of obstruction, patent, Tonsils: with erythema, no exudate, erythema, that is moderate, exudate, is not appreciated, 19:25 Neck: ROM/movement: Meningeal signs: are not present, nuchal rigidity, is not appreciated, 19:25 Chest/axilla: Inspection: normal, 19:25 Cardiovascular: Rate: tachycardic, Rhythm: regular, Edema: is not appreciated, JVD: is not appreciated, 19:25 Respiratory: the patient does not display signs of respiratory distress, Respirations: normal, no use of accessory muscles, no retractions, labored breathing, is not present, Breath sounds: are clear throughout, no decreased breath sounds, no stridor, no wheezing, 19:25 Abdomen/GI: Inspection: abdomen appears normal, Bowel sounds: active, all quadrants, Palpation: soft, in all quadrants, mild abdominal tenderness, in all quadrants, rebound tenderness, is not appreciated, involuntary guarding, is not appreciated, 19:25 Skin: no rash present. 19:25 Neuro: Orientation: to person, place \T\ time. Mentation: is normal, Motor: moves all fours, strength is normal, Sensation: is normal, 19:37 ECG was reviewed by the Attending Physician. cp Vital Signs: 18:23 BP 128 / 56; Pulse 122; Resp 18; Temp 100.2; Pulse Ox 100% ; Weight 54.43 kg; Height 5 mb9 ft. 0 in. ; 18:45 BP 128 / 67; Pulse 67; Resp 16; Pulse Ox 97% ; me1 19:32 BP 107 / 70; Pulse 100; Resp 18; Pulse Ox 100% ; me1 20:00 BP 119 / 70; Pulse 112; Resp 18; Pulse Ox 100% on R/A; me1 21:23 BP 109 / 65; Pulse 99; Resp 16; Pulse Ox 100% on R/A; me1 22:12 BP 108 / 83; Pulse 96; Resp 16; Pulse Ox 98% on R/A; me1 22:30 BP 104 / 80; Pulse 97; Resp 18; Pulse Ox 98% on R/A; me1 18:23 Body Mass Index 23.44 (54.43 kg, 152.4 cm) mb9 MDM: 18:38 Patient medically screened. cp 22:46 Data reviewed: vital signs, nurses notes, lab test result(s), radiologic studies, CT cp scan. 22:46 Differential diagnosis: gastritis, non-specific abd pain, Pyelonephritis, urinary tract cp infection. I considered the following discharge prescriptions or medication management in the emergency department Medications were administered in the Emergency Department. See MAR. Independent interpretation of the following test(s) in the Emergency Department EKG: See my EKG interpretation above. Care significantly affected by the following chronic conditions: Hypertension. Counseling: I had a detailed discussion with the patient and/or guardian regarding the historical points, exam findings, and any diagnostic results supporting the discharge/admit diagnosis, lab results, radiology results, to return to the emergency department if symptoms worsen or persist or if there are any questions or concerns that arise at home. Response to treatment: the patient's symptoms have markedly improved after treatment, and as a result, I will discharge patient. 06/29 19:08 Order name: Acetaminophen; Complete Time: 20:11 06/29 19:08 Order name: Basic Metabolic Panel; Complete Time: 20:11 06/29 20:11 Interpretation: Normal except: NA 135; K 2.9; GLUC 111. 06/29 19:08 Order name: CBC with Diff; Complete Time: 20:11 06/29 19:08 Order name: ETOH Level; Complete Time: 20:11 06/29 19:08 Order name: Hepatic Function; Complete Time: 20:11 06/29 19:08 Order name: PT-INR; Complete Time: 20:11 06/29 19:08 Order name: Test, Urine; Complete Time: 20:11 06/29 19:08 Order name: Ptt, Activated; Complete Time: 20:11 06/29 19:08 Order name: Salicylate; Complete Time: 21:01 06/29 19:08 Order name: Urinalysis w/ reflexes; Complete Time: 20:11 06/29 19:08 Order name: Urine Drug Screen; Complete Time: 20:11 cp 06/29 19:08 Order name: Troponin High Sensitivity; Complete Time: 20:11 cp 06/29 19:09 Order name: Strep; Complete Time: 20:11 cp 06/29 19:09 Order name: COVID-19 SARS RT PCR; Complete Time: 21:01 cp 06/29 19:09 Order name: Influenza Screen (a \T\ B); Complete Time: 20:11 cp 06/29 21:04 Order name: CT Abd/Pelvis - IV Contrast Only; Complete Time: 21:52 cp 06/29 21:52 Interpretation: Report reviewed. 06/29 19:08 Order name: EKG; Complete Time: 19:09 cp 06/29 19:08 Order name: EKG - Nurse/Tech; Complete Time: 19:37 cp 06/29 19:08 Order name: IV Saline Lock; Complete Time: 19:30 cp 06/29 19:08 Order name: Labs collected and sent; Complete Time: 19:30 cp 06/29 19:08 Order name: Suicide Screening ([place]); Complete Time: 19:30 cp EC:37 Rate is 108 beats/min. Rhythm is regular. RI interval is normal. QRS interval is cp normal. QT interval is normal. T waves are Inverted in lead aVR. Interpreted by me. Reviewed by me. Administered Medications: 20:31 Drug: NS 0.9% IV 1000 ml IV at 1 bolus Per protocol; 1000 mL bolus Route: IV; Rate: 1 me1 bolus; Site: right antecubital; 21:41 Follow up: IV Status: Completed infusion; IV Intake: 1000ml me1 20:31 Drug: Potassium PO Effervescent Tablet 50 mEq PO once; dissolve in 4 ounces of water or me1 juice Route: PO; 21:06 Follow up: Response: No adverse reaction me1 20:31 Drug: Potassium PO Effervescent Tablet 25 mEq PO once; dissolve in 4 ounces of water or me1 juice Route: PO; 21:06 Follow up: Response: No adverse reaction me1 20:31 Drug: Ondansetron IVP 4 mg IVP once; over 2 minutes Route: IVP; Site: right antecubital;me1 20:32 Follow up: Response: No adverse reaction; Nausea is decreased me1 20:31 Drug: Famotidine IVP 20 mg IVP once; dilute with 10 mL 0.9% NaCl; give over 2 minutes me1 Route: IVP; Site: right antecubital; 20:32 Follow up: Response: No adverse reaction me1 20:31 Drug: Ketorolac IVP 15 mg IVP once Route: IVP; Site: right antecubital; me1 20:32 Follow up: Response: No adverse reaction me1 20:32 Follow up: Response: Pain is decreased me1 21:29 Drug: Ativan IVP 1 mg IVP once Route: IVP; Site: right antecubital; me1 21:41 Follow up: Response: No adverse reaction; Marked relief of symptoms me1 22:11 Drug: metoCLOPramide IVP 10 mg IVP once; over 1 to 2 minutes Route: IVP; Site: right me1 antecubital; 22:42 Follow up: Response: No adverse reaction me1 22:42 Drug: Potassium PO Effervescent Tablet 50 mEq PO once; dissolve in 4 ounces of water or me1 juice Route: PO; 22:56 Follow up: Response: No adverse reaction me1 Disposition Summary: 06/29/23 22:47 Discharge Ordered Notes: Location: Home cp Problem: new cp Symptoms: have improved cp Condition: Stable cp Diagnosis - Nausea with vomiting, unspecified cp - Streptococcal pharyngitis cp - Influenza due to unidentified influenza virus with other respiratory manifestations cp - Hypokalemia cp - Low back pain cp Followup: cp - With: Private Physician - When: 2 - 3 days - Reason: Recheck today's complaints Discharge Instructions: - Discharge Summary Sheet cp - Acute Back Pain, Adult cp - Nausea and Vomiting, Adult cp - Heat Therapy cp Forms: - Medication Reconciliation Form cp - Thank You Letter cp - Antibiotic Education cp - Prescription Opioid Use cp - Patient Portal Instructions cp - Leadership Thank You Letter cp Prescriptions: - Amoxicillin 875 mg Oral Tablet - take 1 tablet ORAL route every 12 hours for 10 days; 20 tablet; Refills: 0, cp Product Selection Permitted - Ibuprofen 600 mg Oral tablet - take 1 tablet ORAL route every 8 hours As needed take with food; 30 tablet; cp Refills: 0, Product Selection Permitted - Zofran 4 mg Oral Tablet - take 1 tablet ORAL route every 12 hours As needed; 20 tablet; Refills: 0, cp Product Selection Permitted - Tamiflu 75 mg Oral capsule - take 1 tablet ORAL route every 12 hours for 5 days; 20 tablet; Refills: 0, cp Product Selection Permitted Addendum: 07/03/2023 02:51 Co-signature as Attending Physician, Todd Jackson MD I agree with the assessment s p4 and plan of care. I reviewed the patient's care provided by the Advanced Practice Provider and agree with the diagnosis and treatment plan. Signatures: Dispatcher [employer] EDTrevon Alejandro PA PA cp Breneman, Mary Beth RN RN mb9 Todd Jackson MD MD sp4 Christine Bradley RN RN me1
--- NOTE | 2023-06-29 22:48 | ER ---
Nurse's Notes [facility] Name: Christine Dong Age: 37 yrs Sex: Female : 1985 Arrival Date: 06/29/2023 Time: 18:16 Bed IW9 Private MD: Diagnosis: Nausea with vomiting, unspecified;Streptococcal pharyngitis;Influenza due to unidentified influenza virus with other respiratory manifestations;Hypokalemia;Low back pain Presentation: 06/29 18:23 Chief complaint: Patient states: "My kids tested positive for the flu/strep yesterday mb9 and I think I have it. I have restless legs and my body hurts. I took a Xanax but it's not helping. I'm also detoxing off of Cymboxin since last night". Coronavirus screen: Vaccine status: Patient reports being unvaccinated. Ebola Screen: No symptoms or risks identified at this time. Initial Sepsis Screen: Does the patient meet any 2 criteria? No. Patient's initial sepsis screen is negative. Does the patient have a suspected source of infection? No. Patient's initial sepsis screen is negative. Risk Assessment: Do you want to hurt yourself or someone else? Patient reports no desire to harm self or others. Onset of symptoms was June 29, 2023. 18:23 Method Of Arrival: Ambulatory 9 18:23 Acuity: ROSELIA 3 mb9 Triage Assessment: 18:41 General: Appears uncomfortable, Behavior is anxious. Pain: Complains of pain in entire mb9 body. EENT: No signs and/or symptoms were reported regarding the EENT system. Neuro: Level of Consciousness is awake, alert, obeys commands, Oriented to person, place, time, situation, Appropriate for age. Cardiovascular: Patient's skin is warm and dry. Respiratory: Airway is patent Respiratory effort is even, unlabored, Respiratory pattern is regular, symmetrical. GI: No signs and/or symptoms were reported involving the gastrointestinal system. : No signs and/or symptoms were reported regarding the genitourinary system. Derm: Skin is pink, warm \\T\\ dry. Musculoskeletal: Range of motion: intact in all extremities. 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 - Social history:: Smoking status: Patient reports the use of cigarette tobacco products. Screenin:32 [facility] ED Fall Risk Assessment (Adult) History of falling in the last 3 months, me1 including since admission No falls in past 3 months (0 pts) Confusion or Disorientation No (0 pts) Intoxicated or Sedated No (0 pts) Impaired Gait No (0 pts) Mobility Assist Device Used No (0 pt) Altered Elimination No (0 pt) Score/Fall Risk Level 0 - 2 = Low Risk Maintained a safe environment, Provided non-skid footwear, Hourly rounding (assess needs \\T\\ fall precautionary measures) done. Abuse screen: Denies threats or abuse. Nutritional screening: No deficits noted. Tuberculosis screening: No symptoms or risk factors identified. Assessment: 19:32 General: Appears uncomfortable, ill, well groomed, well developed, well nourished, me1 Behavior is calm, cooperative, appropriate for age, Reports "My kids tested positive for the flu/strep yesterday and I think I have it. I have restless legs and my body hurts. I took a Xanax but it's not helping. I'm also detoxing off of Cymboxin since last night". Pain: Complains of pain in back, right leg and left leg Pain does not radiate. Pain currently is 9 out of 10 on a pain scale. Quality of pain is described as aching, Pain began gradually, 1 day ago. Is continuous. Neuro: Level of Consciousness is awake, alert, obeys commands, Oriented to person, place, time, situation, Appropriate for age. Cardiovascular: Capillary refill < 3 seconds Patient's skin is warm and dry. Respiratory: Reports cough that is productive, persistent Airway is patent Trachea midline Respiratory effort is even, unlabored, Respiratory pattern is regular, symmetrical. GI: Reports nausea, vomiting. EENT: Reports pain in throat. 22:00 General: Notified MARIO Harris that patient vomited up her potassium. New order me1 rec'd. . Vital Signs: 18:23 BP 128 / 56; Pulse 122; Resp 18; Temp 100.2; Pulse Ox 100% ; Weight 54.43 kg; Height 5 cox [place]ett ft. 0 in. ; 18:45 BP 128 / 67; Pulse 67; Resp 16; Pulse Ox 97% ; me1 19:32 BP 107 / 70; Pulse 100; Resp 18; Pulse Ox 100% ; me1 20:00 BP 119 / 70; Pulse 112; Resp 18; Pulse Ox 100% on R/A; me1 21:23 BP 109 / 65; Pulse 99; Resp 16; Pulse Ox 100% on R/A; me1 22:12 BP 108 / 83; Pulse 96; Resp 16; Pulse Ox 98% on R/A; me1 22:30 BP 104 / 80; Pulse 97; Resp 18; Pulse Ox 98% on R/A; me1 18:23 Body Mass Index 23.44 (54.43 kg, 152.4 cm) 9 ED Course: 18:19 Patient arrived in ED. mr 18:23 Arm band placed on. 9 18:25 Triage completed. cox monett 18:38 Trevon Mcpherson PA is PHCP. cp 18:38 Todd Jackson MD is Attending Physician. cp 19:10 Christine Bradley, AUBREE is Primary Nurse. me1 19:30 Inserted saline lock: 22 gauge in right antecubital area, using aseptic technique. me1 19:30 Influenza Screen (a \\T\\ B) Sent. me1 19:30 COVID-19 SARS RT PCR Sent. me1 19:30 Strep Sent. me1 19:30 Troponin High Sensitivity Sent. me1 19:30 Acetaminophen Sent. me1 19:30 Basic Metabolic Panel Sent. me1 19:31 CBC with Diff Sent. me1 19:31 ETOH Level Sent. me1 19:31 Hepatic Function Sent. me1 19:31 PT-INR Sent. me1 19:32 Patient has correct armband on for positive identification. Bed in low position. Call me1 light in reach. Side rails up X2. Provided Education on: POC. Verbalized understanding. . 19:32 No provider procedures requiring assistance completed. me1 21:23 CT Abd/Pelvis - IV Contrast Only In Process Unspecified. EDMS 23:03 IV discontinued, intact, bleeding controlled, No redness/swelling at site. Pressure me1 dressing applied. Administered Medications: 20:31 Drug: NS 0.9% IV 1000 ml IV at 1 bolus Per protocol; 1000 mL bolus Route: IV; Rate: 1 me1 bolus; Site: right antecubital; 21:41 Follow up: IV Status: Completed infusion; IV Intake: 1000ml me1 20:31 Drug: Potassium PO Effervescent Tablet 50 mEq PO once; dissolve in 4 ounces of water or me1 juice Route: PO; 21:06 Follow up: Response: No adverse reaction me1 20:31 Drug: Potassium PO Effervescent Tablet 25 mEq PO once; dissolve in 4 ounces of water or me1 juice Route: PO; 21:06 Follow up: Response: No adverse reaction me1 20:31 Drug: Ondansetron IVP 4 mg IVP once; over 2 minutes Route: IVP; Site: right antecubital;me1 20:32 Follow up: Response: No adverse reaction; Nausea is decreased me1 20:31 Drug: Famotidine IVP 20 mg IVP once; dilute with 10 mL 0.9% NaCl; give over 2 minutes me1 Route: IVP; Site: right antecubital; 20:32 Follow up: Response: No adverse reaction me1 20:31 Drug: Ketorolac IVP 15 mg IVP once Route: IVP; Site: right antecubital; me1 20:32 Follow up: Response: No adverse reaction me1 20:32 Follow up: Response: Pain is decreased me1 21:29 Drug: Ativan IVP 1 mg IVP once Route: IVP; Site: right antecubital; me1 21:41 Follow up: Response: No adverse reaction; Marked relief of symptoms me1 22:11 Drug: metoCLOPramide IVP 10 mg IVP once; over 1 to 2 minutes Route: IVP; Site: right me1 antecubital; 22:42 Follow up: Response: No adverse reaction me1 22:42 Drug: Potassium PO Effervescent Tablet 50 mEq PO once; dissolve in 4 ounces of water or me1 juice Route: PO; 22:56 Follow up: Response: No adverse reaction me1 Medication: 19:32 VIS not applicable for this client. me1 Intake: 21:41 IV: 1000ml; Total: 1000ml. me1 Outcome: 22:47 Discharge ordered by MD. cp 23:02 Discharged to home ambulatory, ma1 23:02 Condition: stable 23:02 Discharge instructions given to patient, Instructed on discharge instructions, follow up and referral plans. medication usage, Demonstrated understanding of instructions, follow-up care, medications, Prescriptions given X 4, 23:11 Patient left the ED. me1 Signatures: Dispatcher [employer] EDVA Dina Arnold, Reg Reg mr Trevon Mcpherson, Dina Simmons cp RN RN mb9 Christine Bradley RN RN me1 Corrections: (The following items were deleted from the chart) 18:40 18:23 Chief complaint: Patient states: "My kids tested positive for the flu/strep mb9 yesterday and I think I have it. I have restless legs and my body hurts. I took a Xanax but it's not helping. I'm also detoxing off of Cymboxin since last night" mb9 19:30 19:30 Inserted saline lock: 22 gauge in left antecubital area, using aseptic technique. ma1 ma1 19:32 18:23 Chief complaint: Patient states: "My kids tested positive for the flu/strep me1 yesterday and I think I have it. I have restless legs and my body hurts. I took a Xanax but it's not helping. I'm also detoxing off of Cymboxin since last night" mb9
[2023-06-30 01:33] VITALS: TEMP 100.2
[2023-06-30 01:49] VITALS: BP 104/80; O2SAT 98
== END ==
LOC: ER 18:16
DX: J11.1 Influenza due to unidentified influenza virus with other respiratory manifestations (principal); J02.0 Streptococcal pharyngitis; E87.6 Hypokalemia; M54.50 Low back pain, unspecified; Z11.52 Encounter for screening for COVID-19
CPT/HCPCS: 36415; 74177; 80048; 80076; 80143; 80179; 80307; 81001; 81025; 82077; 84484; 85025; 85610; 85730; 87081; 87635; 87804; 93005; J2405; J2765; J7030; Q9967

== ENCOUNTER 2024-01-30 13:54 | Emergency (ER) | payer OTHER ==
--- NOTE | 2024-01-30 14:06 | ER ---
Nurse's Notes [facility] Name: Christine Dong Age: 38 yrs Sex: Female : 1985 Arrival Date: 01/30/2024 Time: 13:54 Bed IW1 Private MD: Diagnosis: Dental caries, unspecified Presentation: 01/29 14:01 Chief complaint: Patient states: R lower jaw tooth pain for 1 week. NO fever. ll1 Coronavirus screen: Client denies travel out of the [place] in the last 14 days. At this time, the client does not indicate any symptoms associated with coronavirus-19. Ebola Screen: Patient denies travel to an Ebola-affected area in the 21 days before illness onset. Initial Sepsis Screen: Does the patient meet any 2 criteria? No. Patient's initial sepsis screen is negative. Does the patient have a suspected source of infection? No. Patient's initial sepsis screen is negative. Risk Assessment: Do you want to hurt yourself or someone else? Patient reports no desire to harm self or others. Onset of symptoms was January 23, 2024. 14:01 Method Of Arrival: Ambulatory ll1 14:01 Acuity: ROSELIA 4 ll1 Triage Assessment: 14:03 General: Appears uncomfortable, Behavior is calm, cooperative, appropriate for age. ll1 Pain: Complains of pain in R lower jaw Pain currently is 8 out of 10 on a pain scale. Quality of pain is described as aching. EENT: Reports pain in right jaw. 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 - Infectious Disease History:: Denies. - Social history:: Smoking status: Patient denies any tobacco usage or history of. Screenin:[address] [facility] ED Fall Risk Assessment (Adult) History of falling in the last 3 months, ll1 including since admission No falls in past 3 months (0 pts) Confusion or Disorientation No (0 pts) Intoxicated or Sedated No (0 pts) Impaired Gait No (0 pts) Mobility Assist Device Used No (0 pt) Altered Elimination No (0 pt) Score/Fall Risk Level 0 - 2 = Low Risk Maintained a safe environment, Hourly rounding (assess needs \T\ fall precautionary measures) done. Abuse screen: Denies threats or abuse. Nutritional screening: No deficits noted. Tuberculosis screening: No symptoms or risk factors identified. Assessment: 14:09 Reassessment: No changes from previously documented assessment. Patient and/or family ll1 updated on plan of care and expected duration. Pain level reassessed. Patient is alert, oriented x 3, equal unlabored respirations, skin warm/dry/pink. Vital Signs: 14:01 BP 141 / 92; Pulse 76; Resp 16; Temp 97.9; Pulse Ox 100% ; Weight 54.43 kg; Height 5 ll1 ft. 0 in. ; Pain 8/10; 14:01 Body Mass Index 23.44 (54.43 kg, 152.4 cm) ll1 14:01 Pain Scale: Adult ll1 ED Course: 13:56 Patient arrived in ED. mr 13:57 Kylah Love PA-C is [facility]. sb4 13:57 Chad Black MD is Attending Physician. sb4 14:02 Triage completed. ll1 14:02 Arm band placed on. ll1 14:09 No provider procedures requiring assistance completed. Patient did not have IV access ll1 during this emergency room visit. 14:10 Patient has correct armband on for positive identification. Provided Education on: ll1 finish prescribed antibiotics. . Administered Medications: No medications were administered Medication: 14:09 VIS not applicable for this client. ll1 Outcome: 14:05 Discharge ordered by . sb4 14:09 Discharged to home ambulatory, ll1 14:09 Condition: stable 14:09 Discharge instructions given to patient, Instructed on discharge instructions, follow up and referral plans. medication usage, Demonstrated understanding of instructions, follow-up care, medications, Prescriptions given X 1, 14:10 Patient left the ED. ll1 Signatures: Dina Arnold, Nick Reg mr Gretta Whyte, RN RN ll1 Kylah Love PA-C PA-C sb4
--- NOTE | 2024-01-30 14:06 | EDPHYS ---
Physician Documentation [facility] Name: Christine Dong Age: 38 yrs Sex: Female : 1985 Arrival Date: 01/30/2024 Time: 13:54 Bed IW1 Private MD: ED Physician Chad Black HPI: 01/29 14:07 This 38 yrs old Female presents to ER via Ambulatory with complaints of Tooth Pain. sb4 14:16 The patient presents with broken tooth/teeth, pain, redness, swelling. The problem is sb4 located in the lower right second molar. Onset: The symptoms/episode began/occurred at an unknown time. and became worse yesterday. Duration: The symptoms are continuous. Modifying factors: The symptoms are alleviated by nothing, the symptoms are aggravated by air, chewing, cold fluids, food, hot fluids. Associated signs and symptoms: The patient has no apparent associated signs or symptoms. The patient has not experienced similar symptoms in the past. The patient has not recently seen a physician. 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 - Infectious Disease History:: Denies. - Social history:: Smoking status: Patient denies any tobacco usage or history of. ROS: 14:17 Constitutional: Negative for fever, chills, and weight loss, sb4 14:17 ENT: Positive for dental pain, 14:17 All other systems are negative, Exam: 14:17 Constitutional: This is a well developed, well nourished patient who is awake, alert, sb4 and in no acute distress. Head/Face: Normocephalic, atraumatic. Eyes: Extra-ocular motions intact. Periorbital areas with no swelling, redness, or edema. Skin: Warm, dry with normal turgor. Normal color with no rashes, no lesions, and no evidence of cellulitis. 14:17 ENT: Dental exam: fractured teeth are noted, specifically the lower right second molar, gum swelling, that is mild, Vital Signs: 14:01 BP 141 / 92; Pulse 76; Resp 16; Temp 97.9; Pulse Ox 100% ; Weight 54.43 kg; Height 5 ll1 ft. 0 in. ; Pain 8/10; 14:01 Body Mass Index 23.44 (54.43 kg, 152.4 cm) ll1 14:01 Pain Scale: Adult ll1 MDM: 14:01 Patient medically screened. sb4 14:18 Data reviewed: vital signs, nurses notes, and as a result, I will discharge patient. sb4 Counseling: I had a detailed discussion with the patient and/or guardian regarding the historical points, exam findings, and any diagnostic results supporting the discharge/admit diagnosis, the need for outpatient follow up, a dentist, to return to the emergency department if symptoms worsen or persist or if there are any questions or concerns that arise at home. Administered Medications: No medications were administered Disposition: 20:02 Co-signature as Attending Physician, Chad Black MD I reviewed the patient's care rn provided by the Advanced Practice Provider and agree with the diagnosis and treatment plan. Disposition Summary: 01/30/24 14:05 Discharge Ordered Notes: Location: Home sb4 Problem: new sb4 Symptoms: are unchanged sb4 Condition: Stable sb4 Diagnosis - Dental caries, unspecified sb4 Followup: sb4 - With: Private Physician - When: 1 week - Reason: Recheck today's complaints, Re-evaluation by your physician Discharge Instructions: - Discharge Summary Sheet sb4 - Dental Caries, Adult sb4 - Dental Pain, [id number] sb4 Forms: - Antibiotic Education sb4 - Patient Portal Instructions sb4 - Leadership Thank You Letter sb4 Prescriptions: - Amoxicillin 875 mg Oral Tablet - take 1 tablet ORAL route every 12 hours for 10 days; 20 tablet; Refills: 0, sb4 Product Selection Permitted Signatures: Chad Black MD MD rn Lewis, Lynsay, RN RN [facility] Kylah Love PA-C PA-C sb4
[2024-01-30 14:22] VITALS: BP 141/92; TEMP 97.9; O2SAT 100
== END 2024-01-30 14:10 | disposition home or self-care (01) ==
LOC: ER 13:54
DX: K02.9 Dental caries, unspecified (principal)

== ENCOUNTER 2024-03-22 12:44 | Emergency (ER) | payer OTHER ==
[2024-03-22 13:09] LABS: Specific Gravity 1.019 (1.005-1.030); Sqamous Epithelial <5 /HPF (None Seen); Urine Bacteria <20 /HPF (<20); Urine Bilirubin NEGATIVE (Negative); Urine Blood 3+ (Negative); Urine Clarity Extremely Turbid (Clear); Urine Color Light-Yellow (Yellow); Urine Culture Reflex Order REFLEXED; Urine Glucose NEGATIVE (Negative); Urine Ketones NEGATIVE (Negative); Urine Microscopic Reflex YN ORDER UMIC; Urine Nitrite NEGATIVE (Negative); Urine Protein NEGATIVE (Negative); Urine RBC >50 /HPF (None Seen); Urine Urobilinogen Normal (Normal); Urine WBC >50 /HPF (<5)
--- NOTE | 2024-03-22 14:06 | ER ---
Nurse's Notes [facility] Name: Christine Dong Age: 38 yrs Sex: Female : 1985 Arrival Date: 03/22/2024 Time: 12:44 Bed 11 Private MD: Diagnosis: UTI/ Urinary tract infection, site not specified;Dysuria Presentation: 03/22 12:54 Chief complaint: Patient states: burning with urination started this morning. iw Coronavirus screen: At this time, the client does not indicate any symptoms associated with coronavirus-19. Ebola Screen: No symptoms or risks identified at this time. Initial Sepsis Screen: Does the patient meet any 2 criteria? No. Patient's initial sepsis screen is negative. Does the patient have a suspected source of infection? No. Patient's initial sepsis screen is negative. Risk Assessment: Do you want to hurt yourself or someone else? Patient reports no desire to harm self or others. Onset of symptoms was March 22, 2024. 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 - Infectious Disease History:: Denies. - Social history:: Smoking status: Patient uses street drugs, marijuana, Patient/guardian denies using The patient lives. - Family history:: not pertinent. Screenin:07 [facility] ED Fall Risk Assessment (Adult) History of falling in the last 3 months, iw including since admission No falls in past 3 months (0 pts) Confusion or Disorientation No (0 pts) Intoxicated or Sedated No (0 pts) Impaired Gait No (0 pts) Mobility Assist Device Used No (0 pt) Altered Elimination No (0 pt) Score/Fall Risk Level 0 - 2 = Low Risk. Abuse screen: Denies threats or abuse. Denies injuries from another. Nutritional screening: No deficits noted. Tuberculosis screening: No symptoms or risk factors identified. Assessment: 13:05 General: Appears in no apparent distress. Behavior is calm, cooperative. Neuro: Level iw of Consciousness is awake, alert, obeys commands, Oriented to person, place, time, situation, Moves all extremities. Full function. Cardiovascular: Patient's skin is warm and dry. : Reports burning with urination, pain with urination. Derm: Skin is intact, is healthy with good turgor. 14:22 Reassessment: Patient appears in no apparent distress at this time. Patient and/or iw family updated on plan of care and expected duration. Pain level reassessed. Patient is alert, oriented x 3, equal unlabored respirations, skin warm/dry/pink. 14:43 Reassessment: pt not in room for discharge. iw Vital Signs: 12:54 BP 120 / 76; Pulse 88; Resp 16; Temp 98.6; Pulse Ox 100% ; Weight 65.77 kg; Height 5 iw ft. 0 in. ; 12:54 Body Mass Index 28.32 (65.77 kg, 152.4 cm) iw ED Course: 12:46 Patient arrived in ED. mr 12:48 Trevon Johnson MD is Attending Physician. [facility] 12:54 Triage completed. iw 13:01 PREGU Sent. iw 13:01 Urinalysis w/ reflexes Sent. iw 13:02 Patient has correct armband on for positive identification. iw 13:05 Patsy Larkin, RN is Primary Nurse. iw 14:22 Provided Education on: discharge. iw 14:28 No provider procedures requiring assistance completed. Patient did not have IV access iw during this emergency room visit. 03/23 13:05 Arm band placed on. iw Administered Medications: 03/22 14:21 Drug: Rocephin (cefTRIAXone) IM 1 grams IM once Route: IM; Site: right ventrogluteal; iw 14:28 Follow up: Response: No adverse reaction iw 14:21 Drug: LevOfloxacin PO 750 mg PO once Route: PO; iw 14:27 Follow up: Response: No adverse reaction; Medication administered at discharge. iw 14:21 Drug: Phenazopyridine PO 200 mg PO once Route: PO; iw 14:26 Follow up: Response: No adverse reaction; Medication administered at discharge. iw Medication: 13:05 VIS not applicable for this client. iw Outcome: 14:05 Discharge ordered by . valentin 14:28 Condition: good iw 14:28 Discharge instructions given to patient, Instructed on discharge instructions, follow up and referral plans. medication usage, Demonstrated understanding of instructions, follow-up care, medications, Prescriptions given X 3, 14:29 Discharged to iw 14:53 Patient left the ED. iw Signatures: Trevon Johnson MD MD cha Rivera Dina, Reg Reg Patsy Salamanca RN RN iw Corrections: (The following items were deleted from the chart) 12:55 12:54 BP 120 / 76; Pulse 88bpm; Resp 16bpm; Pulse Ox 100%; Temp 98.6F; iw iw
--- NOTE | 2024-03-22 14:06 | EDPHYS ---
Physician Documentation [facility] Name: Christine Dong Age: 38 yrs Sex: Female : 1985 Arrival Date: 03/22/2024 Time: 12:44 Bed 11 Private MD: MARIBEL Physician Trevon Johnson HPI: 03/22 13:55 This 38 yrs old Female presents to ER via Ambulatory with complaints of valentin Urinary Problem. 14:01 The patient presents with urinary symptoms, dysuria, frequency, hesitancy, urgency. valentin Onset: The symptoms/episode began/occurred 3 day(s) ago. Modifying factors: The symptoms are alleviated by nothing, the symptoms are aggravated by nothing. Associated signs and symptoms: The patient has no apparent associated signs or symptoms. Severity of symptoms: At their worst the symptoms were moderate, in the emergency department the symptoms are unchanged. The patient is sexually active, reportedly has a single partner. The patient has experienced similar episodes in the past, several times. 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 - Infectious Disease History:: Denies. - Social history:: Smoking status: Patient uses street drugs, marijuana, Patient/guardian denies using The patient lives. - Family history:: not pertinent. ROS: 14:01 Constitutional: Negative for fever, chills, and weight loss, Eyes: Negative for injury, valentin pain, redness, and discharge, ENT: Negative for injury, pain, and discharge, Neck: Negative for injury, pain, and swelling, Cardiovascular: Negative for chest pain, palpitations, and edema, Respiratory: Negative for shortness of breath, cough, wheezing, and pleuritic chest pain, Abdomen/GI: Negative for abdominal pain, nausea, vomiting, diarrhea, and constipation, Back: Negative for injury and pain, MS/Extremity: Negative for injury and deformity, Skin: Negative for injury, rash, and discoloration, Neuro: Negative for headache, weakness, numbness, tingling, and seizure, Psych: Negative for depression, anxiety, suicide ideation, homicidal ideation, and hallucinations, Allergy/Immunology: Negative for hives, rash, and allergies, Endocrine: Negative for neck swelling, polydipsia, polyuria, polyphagia, and marked weight changes, Hematologic/Lymphatic: Negative for swollen nodes, abnormal bleeding, and unusual bruising, 14:01 : Positive for urinary symptoms, urinary frequency, small amounts, hematuria, burning with urination, Exam: 14:01 Constitutional: This is a well developed, well nourished patient who is awake, alert, valentin and in no acute distress. Head/Face: Normocephalic, atraumatic. Eyes: Pupils equal round and reactive to light, extra-ocular motions intact. Lids and lashes normal. Conjunctiva and sclera are non-icteric and not injected. Cornea within normal limits. Periorbital areas with no swelling, redness, or edema. ENT: Nares patent. No nasal discharge, no septal abnormalities noted. Tympanic membranes are normal and external auditory canals are clear. Oropharynx with no redness, swelling, or masses, exudates, or evidence of obstruction, uvula midline. Mucous membranes moist. Neck: Trachea midline, no thyromegaly or masses palpated, and no cervical lymphadenopathy. Supple, full range of motion without nuchal rigidity, or vertebral point tenderness. No Meningismus. Chest/axilla: Normal chest wall appearance and motion. Nontender with no deformity. No lesions are appreciated. Cardiovascular: Regular rate and rhythm with a normal S1 and S2. No gallops, murmurs, or rubs. Normal PMI, no JVD. No pulse deficits. Respiratory: Lungs have equal breath sounds bilaterally, clear to auscultation and percussion. No rales, rhonchi or wheezes noted. No increased work of breathing, no retractions or nasal flaring. Abdomen/GI: Soft, non-tender, with normal bowel sounds. No distension or tympany. No guarding or rebound. No evidence of tenderness throughout. Back: No spinal tenderness. No costovertebral tenderness. Full range of motion. Skin: Warm, dry with normal turgor. Normal color with no rashes, no lesions, and no evidence of cellulitis. MS/ Extremity: Pulses equal, no cyanosis. Neurovascular intact. Full, normal range of motion. Neuro: Awake and alert, GCS 15, oriented to person, place, time, and situation. Cranial nerves II-XII grossly intact. Motor strength 5/5 in all extremities. Sensory grossly intact. Cerebellar exam normal. Normal gait. Psych: Awake, alert, with orientation to person, place and time. Behavior, mood, and affect are within normal limits. Vital Signs: 12:54 BP 120 / 76; Pulse 88; Resp 16; Temp 98.6; Pulse Ox 100% ; Weight 65.77 kg; Height 5 iw ft. 0 in. ; 12:54 Body Mass Index 28.32 (65.77 kg, 152.4 cm) iw MDM: 12:48 Medical Screening Exam initiated valentin 14:03 Differential diagnosis: kidney stone, urinary tract infection, vaginosis. Data [facility] reviewed: vital signs, nurses notes, lab test result(s), urinalysis, bacteruria, pyuria. Consideration of Admission/Observation Escalation of care including admission/observation considered. I considered the following discharge prescriptions or medication management in the emergency department Medications were administered in the Emergency Department. See MAR. Historians other than the Patient: pt well informed. 03/22 12:48 Order name: Urinalysis w/ reflexes; Complete Time: 13:43 [facility] 03/22 12:48 Order name: PREGU; Complete Time: 13:43 [facility] 03/22 13:12 Order name: Urine Culture EDMS Administered Medications: 14:21 Drug: Rocephin (cefTRIAXone) IM 1 grams IM once Route: IM; Site: right ventrogluteal; iw 14:28 Follow up: Response: No adverse reaction iw 14:21 Drug: LevOfloxacin PO 750 mg PO once Route: PO; iw 14:27 Follow up: Response: No adverse reaction; Medication administered at discharge. iw 14:21 Drug: Phenazopyridine PO 200 mg PO once Route: PO; iw 14:26 Follow up: Response: No adverse reaction; Medication administered at discharge. Disposition Summary: 03/22/24 14:05 Discharge Ordered Notes: Location: Home valentin Problem: new valentin Symptoms: have improved valentin Condition: Stable valentin Diagnosis - UTI/ Urinary tract infection, site not specified valentin - Dysuria valentin Followup: valentin - With: Private Physician - When: 2 - 3 days - Reason: Recheck today's complaints, Continuance of care, Re-evaluation by your physician Discharge Instructions: - Discharge Summary Sheet valentin - Dysuria valentin - Urinary Tract Infection, Adult valentin - Urinary Tract Infection, Adult, [id number] [facility] Forms: - Medication Reconciliation Form [facility] - Antibiotic Education valentin - Prescription Opioid Use vlaentin - Patient Portal Instructions [facility] - Leadership Thank You Letter [facility] Prescriptions: - Pyridium 200 mg Oral Tablet - take 1 tablet ORAL route every 8 hours for 3 days; 9 tablet; Refills: 0, [facility] Product Selection Permitted - Bactrim DS 800-160 mg Oral Tablet - take 1 tablet ORAL route every 12 hours for 3 days; 6 tablet; Refills: 0, [facility] Product Selection Permitted - levofloxacin 500 mg Oral tablet - take 1 tablet ORAL route once daily for 7 days; 14 tablet; Refills: 0, Product [facility] Selection Permitted Signatures: Dispatcher [employer] Trevon Parra MD MD cha Williams, Irene RN RN iw
[2024-03-22] MEDS ORDERED: levoFLOXacin 750 MG TAB ONE (14:11)
[2024-03-22] MEDS ORDERED: LIDOCAINE 1% MPF 2 ML AMPULE ONE (14:11)
[2024-03-22] MEDS ORDERED: CEFTRIAXONE 1000 MG/VIAL ONE (14:11)
[2024-03-22] MEDS ORDERED: PHENAZOPYRIDINE 100MG TAB PO ONE (14:12)
[2024-03-22] MEDS ORDERED: ONDANSETRON 4 MG (ODT) TAB ONE (14:48)
[2024-03-22 17:50] VITALS: BP 120/76; TEMP 98.6; O2SAT 100
== END 2024-03-22 14:53 | disposition home or self-care (01) ==
LOC: ER 12:44
DX: N39.0 Urinary tract infection, site not specified (principal); Z87.442 Personal history of urinary calculi
CPT/HCPCS: 87088; 81001; 87086; 81025; 87077; 87186; 96372; 99284; Q0162; J0696